=== PATIENT | female | born 1955 | race Caucasian/White ===

== ENCOUNTER 2016-08-20 18:04 | Inpatient (IN) | payer BC, OTHER ==
[~2016-08-20] VITALS: Ht 165.1 cm; Wt 100.9 kg
[~2016-08-20 18:04] MED LIST: SODIUM CHLORIDE 0.9% 1000ML 1,000 ML IV SCH
[2016-08-20] MEDS ORDERED: SODIUM CHLORIDE 0.9% 1000ML 1,000 ML IV STA (19:01)
[2016-08-20] MEDS ORDERED: LISI-725 PO (19:13)
[2016-08-20] MEDS ORDERED: PROAIR INH (19:13)
[2016-08-20] MEDS ORDERED: ADVIN25/60 INH (19:13)
[2016-08-20] MEDS ORDERED: FLUT0.15 NAE (19:13)
[2016-08-20] MEDS ORDERED: LEVO125T72 PO (19:13)
[2016-08-20] MEDS ORDERED: CYCL10TA6 PO (19:13)
[2016-08-20] MEDS ORDERED: DICL-201 PO (19:13)
[2016-08-20] MEDS ORDERED: METF-384 PO (19:13)
[2016-08-20] MEDS ORDERED: NVLRB SQ (19:13)
[2016-08-20] MEDS ORDERED: ASPI81TA28 PO (19:13)
[2016-08-20] MEDS ORDERED: INSDGI SC (19:13)
[2016-08-20] MEDS ORDERED: FEXO1TAB49 PO (19:38)
[2016-08-20] MEDS ORDERED: OMEG10007 (19:38)
[2016-08-20 19:55] LABS: BASO % 0.5 %; BASO ABS # 0.07 K/uL (0-0.2); COMPLETE YES; EOS % 0.7 %; HEMATOCRIT 38.9 % (37-47); IG% 0.3 %; LYMPH % 30.2 %; LYMPH ABS # 4.58 K/uL (1.2-3.4); MEAN CELL VOLUME 95.3 fL (80-100); MEAN CORPUSCULAR HEMOGLOBIN 33.3 pg (25-34); MEAN PLATELET VOLUME 10.5 fL (7.4-10.4); NEUT % 58.3 %; PLATELET COUNT 229 K/uL (130-400); RED BLOOD COUNT 4.08 M/uL (4.2-5.4); WHITE BLOOD COUNT 15.17 K/uL (4.8-10.8)
[2016-08-20 20:12] LABS: BUN/CREATININE RATIO 16.5 (10-20); C-REACTIVE PROTEIN 6.42 mg/dl (0-0.29); CALCIUM 9.6 mg/dl (8.5-10.1); CREATININE 0.77 mg/dl (0.60-1.20); POTASSIUM 3.7 mmol/L (3.5-5.1)
[2016-08-20] MEDS ORDERED: LIDOCAINE/EPINEPHRINE 1% 20 ML VIAL INFIL ONE (20:15)
[2016-08-20] MEDS ORDERED: VANCOMYCIN INJ 2,500 MG in SODIUM CHLORIDE 0.9% 500ML 500 ML IV STA (20:18)
[2016-08-20] MEDS ORDERED: CEFTRIAXONE SOD INJ 1 GM ADDVIAL IV STA (20:18)
[2016-08-20] MEDS ORDERED: DEXTROSE 50% 50 ML SYR IV PRN (22:15)
[2016-08-20] MEDS ORDERED: GLUCAGON FOR INJ 1 MG VIAL SQ PRN (22:15)
[2016-08-20] MEDS ORDERED: ONDANSETRON INJ 2 MG/ML 2 ML VIAL IV PRN (22:15)
[2016-08-20] MEDS ORDERED: GLUCOSE 10 TABS/TUBE PO PRN (22:15)
[2016-08-20] MEDS ORDERED: GLUCOSE 40% GEL 15 GM TUBE PO PRN (22:15)
[2016-08-20] MEDS ORDERED: PHARMACY GLYCEMIC MGMT CONSULT PRN (22:19)
[2016-08-20] MEDS ORDERED: ALBU18002 INH (22:22)
[2016-08-20] MEDS ORDERED: MULTTAB58 PO (22:22)
[2016-08-20] MEDS ORDERED: OMEG10007 PO (22:22)
[2016-08-20] MEDS ORDERED: ALBUTEROL HFA 8 GM INHALER INH PRN (22:30)
--- NOTE | 2016-08-20 22:57 | History and Physical ---
History & Physical Date & Time of Service: Aug 20, 2016 at 22:25 Chief Complaint: Infection On Right Leg - Vagina Primary Care Physician: Jn Nunes M.D. History of Present Illness Source: patient, clinic records This is a 60 y/o female with PMH of DM type 2, obesity, HTN, HL, hypothyroidism , and other problems listed below who presents to the ED for right labia and right upper thigh tenderness and swelling. Patient initially developed abscesses of right and left upper thigh in June 2016 and was treated with 2 courses of Bactrim as outpatient. Those lesions resolved then approx 1 week ago developed 2 areas of swelling and tenderness in right upper anterior thigh and right labia. She states there was purulent drainage from the right thigh lesion. Since yesterday has fevers with Tmax of 100.6 in [employer] [facility] office today. She was seen in [facility] for annual exam and sent to ER for abscess. In ER the right thigh lesion was drained and cultured. Pt reports discomfort if she sits on the lesions but is feeling comfortable now. Her blood sugar was low in 60s last night at home. She denies dizziness, chills, URI symptoms, cough, SOB, chest pain, abdominal pain, N/V/D, dysuria, frequency, vaginal discharge. No recent hospitalization. Past Medical/Surgical History Medical Problems: (1) DM type 2 (diabetes mellitus, type 2) Status: Chronic (2) Hypothyroidism Status: Chronic (3) Obesity (BMI 30-39.9) Status: Chronic (4) Obstructive lung disease Status: Chronic Surgical Problems: (1) H/O dilation and curettage Status: Chronic Family History Cardiac disorder MOTHER SISTER Diabetes mellitus MOTHER SISTER FH: emphysema FATHER Hypertension SISTER Social History Smoking Status: Never Smoker (quit in ) Alcohol Use: occasionally Drug Use: none Marital Status: Allergies Coded Allergies: Penicillins (Verified Allergy, Severe, RASH, JOINT PAIN, 08/20/16) Home Medications Scheduled Aspirin (Aspirin Ec), 162 MG PO HS Cyclobenzaprine Hcl (Flexeril), 10 MG PO TID Fexofenadine Hcl (Kaelyn Allergy), 1 TAB PO DAILY Fish Oil ([place]-3), 1 CAP PO DAILY Fluticasone Prop/Salmeterol (Advair Diskus 250/50 60 Dose), 1 PUFF INH BID Fluticasone Propionate (Nasal) (Flonase Allergy Relief), 2 SPRAYS JOSUE BID Insulin Glargine (Lantus), 50 UNITS SC QPM Insulin Human Regular (Novolin R), SQ TIDM Levothyroxine Sodium (Synthroid), 125 MCG PO DAILY Lisinopril (Zestril), 20 MG PO QPM Metformin Hcl (Glucophage), 1,000 MG PO BID Multiple Vitamin (Multivitamin), 1 TAB PO DAILY Scheduled PRN Albuterol Sulfate (Proair Respiclick), 2 PUFFS INH Q4 PRN for SOB/Wheezing Review of Systems Ten point ROS performed with pertinent positives and negatives noted in HPI. Physical Exam Vital Signs Date Time Temp Pulse Resp B/P Pulse Ox O2 Delivery O2 Flow Rate FiO2 08/20/16 20:30 91 17 135/88 93 Room Air 08/20/16 18:15 37.7 97 18 155/86 93 Room Air General Appearance: no apparent distress, + obese, + pertinent finding ( pleasant alert 60 y/o female) Head: normocephalic, atraumatic Eyes: normal inspection, PERRL, EOMI ENT: hearing grossly normal, pharynx normal Neck: supple, trachea midline Respiratory/Chest: lungs clear, normal breath sounds, no respiratory distress Cardiovascular: regular rate, rhythm, no murmur Abdomen/GI: normal bowel sounds, non tender, soft Extremities/Musculoskelatal: no calf tenderness, no pedal edema Neurologic/Psych: alert, normal mood/affect, oriented x 3 Skin: + pertinent finding (right labia with erythema, tenderness, induration. no fluctuance. right upper thigh with small area induration s/p incision/ drainage in ER with mild surrounding erythema. no active drainage.) Diagnostics Laboratory Results Results Past 24 Hours Test 08/20/16 13:45 08/20/16 19:44 08/20/16 22:21 Range/Units White Blood Count 15.17 4.8-10.8 K/uL Red Blood Count 4.08 4.2-5.4 M/uL Hemoglobin 13.6 12.0-16.0 g/dL Hematocrit 38.9 37-47 % Mean Corpuscular Volume 95.3 80-100 fL Mean Corpuscular Hemoglobin 33.3 25-34 pg Mean Corpuscular Hemoglobin Concent 35.0 32-36 g/dl Platelet Count 229 130-400 K/uL Mean Platelet Volume 10.5 7.4-10.4 fL Neutrophils (%) (Auto) 58.3 % Lymphocytes (%) (Auto) 30.2 % Monocytes (%) (Auto) 10.0 % Eosinophils (%) (Auto) 0.7 % Basophils (%) (Auto) 0.5 % Neutrophils # (Auto) 8.86 1.4-6.5 K/uL Lymphocytes # (Auto) 4.58 1.2-3.4 K/uL Monocytes # (Auto) 1.51 0.11-0.59 K/uL Eosinophils # (Auto) 0.10 0-0.5 K/uL Basophils # (Auto) 0.07 0-0.2 K/uL RDW Standard Deviation 45.5 36.4-46.3 fL RDW Coefficient of Variation 13.0 11.5-14.5 % Immature Granulocyte % (Auto) 0.3 % Immature Granulocyte # (Auto) 0.05 0.00-0.02 K/uL Sodium Level 138 136-145 mmol/L Potassium Level 3.7 3.5-5.1 mmol/L Chloride Level 105 98-107 mmol/L Carbon Dioxide Level 24 21-32 mmol/L Anion Gap 9.0 3-11 mmol/L Blood Urea Nitrogen 13 7-18 mg/dl Creatinine 0.77 0.60-1.20 mg/dl Est Creatinine Clear Calc Drug Dose 89.2 ml/min Estimated GFR () 95.9 Estimated GFR (Non- 82.8 BUN/Creatinine Ratio 16.5 10-20 Random Glucose 82 70-99 mg/dl Calcium Level 9.6 8.5-10.1 mg/dl C-Reactive Protein 6.42 0-0.29 mg/dl Bedside Lactic Acid Venous 0.87 0.90-1.70 mmol/L Microbiology Results 08/20/16 Blood Culture, Received Pending 08/20/16 Blood Culture, Received Pending 08/20/16 Gram Stain, Received Pending 08/20/16 Wound Culture, Received Pending Impression Assessment and Plan RIGHT LABIA/ RIGHT THIGH CELLULITIS In setting of DM type 2 Met criteria for sepsis with fever (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); HR in 90s, leukocytosis (WBC 15k); however lactic acid WNL and BP's are stable so sepsis considered less likely S/p drainage of right thigh abscess in ED Received vancomycin and ceftriaxone in ED Blood cultures and wound culture pending Continue empiric vancomycin and ceftriaxone HYPERTENSION BP 130s-150s in ER Continue lisinopril with parameter DM TYPE 2 Hold metformin during hospitalization Hold Lantus due to hypoglycemia episode at home 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 Flores HYPOTHYROIDISM Continue levothyroxine CODE STATUS Full code per my discussion with the patient. DVT PROPHYLAXIS Heparin SQ Patient seen in collaboration with Dr. Valencia. Please see his addendum. Attending Addendum Pt was seen and examined. Agreed with Martha SAMAYOA's physical exam, assessment and plan. 60 y/o female with PMH of DM type 2, obesity, HTN, HL, hypothyroidism presents to the ED for right labia and right upper thigh tenderness and swelling. Pt said that she has been having recurrent abscesses in the right and left thigh area and sometimes in her back. she said that today she went to see her [facility] for her annual exam when they told her to go to the ED for eval. Pt said that she had a fever yesterday. Denies any chest pain, palpitation, dizziness and sob. General- no acute distress Head- atraumatic Eyes- PERRL, EOMI ENT- oropharynx clear Neck- supple, no JVD Lungs- clear to auscultation and percussion Heart- regular rhythm; no murmur Abdomen- normal bowel sounds, soft Extremities- no calf tenderness Neuro- alert, oriented x 3; PERRL, EOMI Skin- warm & dry, Right thigh redness with small area induration [employer]- Right labial area tenderness and redness A/P RIGHT LABIAL/ RIGHT THIGH CELLULITIS S/p drainage of right thigh abscess in ED febrile with elevated WBC Received vancomycin and ceftriaxone in ED Blood cultures and wound culture pending Vital stable Continue Abx continue monitor Please refer to Martha SAMAYOA's documentation for other problems Rosalia Valencia MD VTE Prophylaxis VTE Risk Assessment Done? Y/N: Yes Risk Level: Moderate
[2016-08-20] MEDS ORDERED: VANCOMYCIN CONSULT ACTIVE PRN (23:16)
--- NOTE | 2016-08-20 23:57 | EMERGENCY ROOM VISIT NOTE ---
History Report prepared by Iker: Jina Vaz Under the Supervision of: Dr. Wally Eastman M.D. First contact with patient: 18:47 Chief Complaint: WOUND INFECTION Stated Complaint: INFECTION ON RIGHT LEG - VAGINA Nursing Triage Summary: pt sent here by gyne has lesion on vulvar. has been taking bactrim finished 2 weeks ago. lesion come in different places sent for iv antibiotics History of Present Illness The patient is a 60 year old female who presents to the Emergency Room with complaints of persistent "zits" on in the vaginal area which presented DIE TURNER. She was sent to the ED from [facility] after they found the cysts or "zits" localized in the labia area which might be infected. She denies any redness down the leg or up to her abdomen. She has had a fever last night and today which was 100.6 when measured DIE TURNER. She is diabetic and reports that her blood sugar levels have been good, excepting a couple spikes on occasion. Her sugar was normal this morning. She was on Bactrim for 2 weeks which has not cleared her infection. Source of History: patient Onset: DIE TURNER Position: other (vaginal area) Quality: other ("zits") Timing: other (persistent) Associated Symptoms: + fevers Note: Pt denies redness on legs or abdomen. Review of Systems See HPI for pertinent positives & negatives. A total of 10 systems reviewed and were otherwise negative. Past Medical & Surgical Medical Problems: (1) Diabetes (2) DM type 2 (diabetes mellitus, type 2) (3) Hypothyroidism (4) Labial infection (5) Obesity (BMI 30-39.9) (6) Obstructive lung disease Surgical Problems: (1) H/O dilation and curettage Family History Patient reports no known family medical history. Social History Smoking Status: Never Smoker Marital Status: Housing Status: lives with family Occupation Status: employed Current/Historical Medications Scheduled Aspirin (Aspirin Ec), 162 MG PO HS Cyclobenzaprine Hcl (Flexeril), 10 MG PO TID Fexofenadine Hcl (Kaelyn Allergy), 1 TAB PO DAILY Fish Oil ([place]-3), 1 CAP PO DAILY Fluticasone Prop/Salmeterol (Advair Diskus 250/50 60 Dose), 1 PUFF INH BID Fluticasone Propionate (Nasal) (Flonase Allergy Relief), 2 SPRAYS JOSUE BID Insulin Glargine (Lantus), 50 UNITS SC QPM Insulin Human Regular (Novolin R), SQ TIDM Levothyroxine Sodium (Synthroid), 125 MCG PO DAILY Lisinopril (Zestril), 20 MG PO QPM Metformin Hcl (Glucophage), 1,000 MG PO BID Multiple Vitamin (Multivitamin), 1 TAB PO DAILY Scheduled PRN Albuterol Sulfate (Proair Respiclick), 2 PUFFS INH Q4 PRN for SOB/Wheezing Allergies Coded Allergies: Penicillins (Verified Allergy, Severe, RASH, JOINT PAIN, 08/20/16) Physical Exam Vital Signs Date Time Temp Pulse Resp B/P Pulse Ox O2 Delivery O2 Flow Rate FiO2 08/20/16 23:00 82 20 137/82 96 Room Air 08/20/16 20:30 91 17 135/88 93 Room Air 08/20/16 18:15 37.7 97 18 155/86 93 Room Air Physical Exam GENERAL: Patient is well appearing and in mild distress. HEENT: No acute trauma, normocephalic atraumatic, mucous membranes moist, no nasal congestion, no scleral icterus. NECK: No stridor, no adenopathy, no meningismus, trachea is midline. LUNGS: No dyspnea. Clear to auscultation and equal bilaterally. No wheeze, no rhonchi. HEART: Regular rate and rhythm. No murmurs, rubs, gallops appreciated. ABDOMEN: Soft, nontender, bowel sounds positive, no masses appreciated, no peritonitis. BACK: No midline tenderness, no CVA tenderness : EXTREMITIES: Normal motion all extremities, no cyanosis, no edema. NEUROLOGIC: Alert and oriented, no acute motor or sensory deficits, no focal weakness, cranial nerves grossly intact. SKIN: No rash, no jaundice, no diaphoresis. Medical Decision & Procedures Laboratory Results 08/20/16 13:45 Red Blood Count 4.08, Mean Corpuscular Volume 95.3, Mean Corpuscular Hemoglobin 33.3, Mean Corpuscular Hemoglobin Concent 35.0, Mean Platelet Volume 10.5, Neutrophils (%) (Auto) 58.3, Lymphocytes (%) (Auto) 30.2, Monocytes (%) (Auto) 10.0, Eosinophils (%) (Auto) 0.7, Basophils (%) (Auto) 0.5, Neutrophils # (Auto ) 8.86, Lymphocytes # (Auto) 4.58, Monocytes # (Auto) 1.51, Eosinophils # (Auto ) 0.10, Basophils # (Auto) 0.07 08/20/16 13:45 Test 08/20/16 13:45 08/20/16 19:44 08/20/16 19:45 White Blood Count 15.17 K/uL (4.8-10.8) Red Blood Count 4.08 M/uL (4.2-5.4) Hemoglobin 13.6 g/dL (12.0-16.0) Hematocrit 38.9 % (37-47) Mean Corpuscular Volume 95.3 fL (80-100) Mean Corpuscular Hemoglobin 33.3 pg (25-34) Mean Corpuscular Hemoglobin Concent 35.0 g/dl (32-36) Platelet Count 229 K/uL (130-400) Mean Platelet Volume 10.5 fL (7.4-10.4) Neutrophils (%) (Auto) 58.3 % Lymphocytes (%) (Auto) 30.2 % Monocytes (%) (Auto) 10.0 % Eosinophils (%) (Auto) 0.7 % Basophils (%) (Auto) 0.5 % Neutrophils # (Auto) 8.86 K/uL (1.4-6.5) Lymphocytes # (Auto) 4.58 K/uL (1.2-3.4) Monocytes # (Auto) 1.51 K/uL (0.11-0.59) Eosinophils # (Auto) 0.10 K/uL (0-0.5) Basophils # (Auto) 0.07 K/uL (0-0.2) RDW Standard Deviation 45.5 fL (36.4-46.3) RDW Coefficient of Variation 13.0 % (11.5-14.5) Immature Granulocyte % (Auto) 0.3 % Immature Granulocyte # (Auto) 0.05 K/uL (0.00-0.02) Anion Gap 9.0 mmol/L (3-11) Est Creatinine Clear Calc Drug Dose 89.2 ml/min Estimated GFR () 95.9 Estimated GFR (Non- 82.8 BUN/Creatinine Ratio 16.5 (10-20) Calcium Level 9.6 mg/dl (8.5-10.1) C-Reactive Protein 6.42 mg/dl (0-0.29) Bedside Lactic Acid Venous 0.87 mmol/L (0.90-1.70) Prothrombin Time 11.0 SECONDS (9.0-12.0) Prothromb Time International Ratio 1.0 (0.9-1.1) Laboratory results as reviewed by me. Medications Administered Medications (Trade) Dose Ordered Sig/Fallon Route Start Time Stop Time Status Last Admin Dose Admin Sodium Chloride 1,000 ml @ 75 mls/hr [id number] STAT IV 08/20/16 19:01 08/21/16 08:20 08/20/16 19:01 75 MLS/HR Vancomycin HCl/ Sodium Chloride (Vancomycin Inj/ Nss 500ml) 550 ml @ 200 mls/hr ONE STAT IV 08/20/16 20:18 08/20/16 23:02 DC 08/20/16 21:17 200 MLS/HR Ceftriaxone Sodium (Rocephin Inj) 1 gm NOW STAT IV 08/20/16 20:18 08/20/16 20:20 DC 08/20/16 20:35 1 GM ED Course 1857: The patient was evaluated in room B5. A complete history and physical exam was performed. 1900: NSS 1000 ml @ 75 mls/hr IV. 2014: Lidocaine/Epinephrine 20 ml INFIL. 2018: Rocephin Inj 1 gm IV, Vancomycin HCl 2500 mg/Sodium Chloride 550 ml @ 200 mls/hr IV. 2053: I discussed the patient's case with Dr. Garrett, [facility] - hospitalist. The patient will be evaluated for further treatment and disposition. 2058: Upon reevaluation, the patient is resting comfortably. I discussed results and treatment plan with the patient. she verbalized understanding and agreement with the treatment plan. The patient will be evaluated for further management. Medical Decision 60 yr old pleasant female with history of DMII and frequent contact with hospital[facility] through work and taking care of ill sister. She has been on bactrim for 2 weeks for labial infection with worsening infection. Now with fevers at clinic, chills and not feeling well. Extensive cellulitis with likely underlying abscess right labia. Right thigh abscess drained and cultured by me. Blood cultures obtained. Not hypotensive and no lactic acidosis. She was given gentle fluids, empiric broad abx, and will need to come in for early sepsis and air marshal evaluation. Will defer further imaging to managing team/air marshal. Consults Time Called: 2048 Consulting Physician: Tio Deleon - hospitalist Returned Call: [phone] Discussed the patient's case. The patient will be evaluated for further treatment and disposition. Impression Primary Impression: Sepsis Additional Impressions: Labial infection Abscess of right thigh Scribe Attestation The scribe's documentation has been prepared under my direction and personally reviewed by me in its entirety. I confirm that the note above accurately reflects all work, treatment, procedures, and medical decision making performed by me. Departure Information Dispostion Being Evaluated By Hospitalist Referrals Sherri Mcclure (PCP) Patient Instructions My [facility] Problem Qualifiers Primary Impression: Sepsis Sepsis type: sepsis due to unspecified organism Qualified Codes: A41.9 - Sepsis, unspecified organism
[2016-08-21 00:05] VITALS: BMI 37.0
[2016-08-21 00:41] VITALS: BP 137/76; PULSE 89; TEMP 36.9; O2SAT 91
[2016-08-21] MEDS: ACETAMINOPHEN 325 MG TAB PO PRN ×3 (00:45→19:21)
[2016-08-21] MEDS: SODIUM CHLORIDE 0.9% 1000ML 1,000 ML IV SCH ×2 (02:37→14:05)
[2016-08-21] MEDS: LEVOTHYROXINE 125 MCG TAB PO SCH (05:50)
[2016-08-21] MEDS: HEPARIN SOD 5000 UNIT/0.5 ML CARP SQ SCH ×3 (05:52→21:49)
[2016-08-21 06:57] VITALS: BP 112/74; PULSE 73; TEMP 36.5; O2SAT 93
[2016-08-21 07:07] LABS: HEMATOCRIT 35.9 % (37-47); MEAN CELL VOLUME 94.7 fL (80-100); MEAN CORPUSCULAR HEMOGLOBIN 31.9 pg (25-34); MEAN CORPUSCULAR HGB CONC 33.7 g/dl (32-36); MEAN PLATELET VOLUME 10.1 fL (7.4-10.4); PLATELET COUNT 203 K/uL (130-400); RED BLOOD COUNT 3.79 M/uL (4.2-5.4); WHITE BLOOD COUNT 11.24 K/uL (4.8-10.8)
[2016-08-21 07:26] LABS: ESTIMATED AVERAGE GLUCOSE 177 mg/dl; HA1C FLAG Normal (Normal)
[2016-08-21 08:10] VITALS: O2SAT 93
[2016-08-21] MEDS: FLUTICASONE PROPIONATE NA SPR 16 GM BTL NAE SCH ×2 (09:52→21:12)
[2016-08-21] MEDS: FLUTICASONE/SALMETEROL 250/50 (ADVAIR) 14 PUFF/1 INHALER INH SCH ×2 (09:52→21:13)
[2016-08-21] MEDS: OMEGA-3 (PURIFIED FISH OIL) 1 GM CAP PO SCH (09:52)
[2016-08-21] MEDS: CYCLOBENZAPRINE HCL 10 MG TAB PO SCH ×3 (09:53→21:14)
[2016-08-21] MEDS: FEXOFENADINE HCL 180 MG TAB PO SCH (09:53)
[2016-08-21] MEDS: MULTIVITAMIN TAB PO SCH (09:53)
--- NOTE | 2016-08-21 09:53 | Pharmacy Progress Note ---
Pharmacy Antibiotic Consult Date of Service: Aug 21, 2016. Pharmacy Dosing Scope Pharmacy is consulted to initiate vancomycin IV dosing therapy, order appropriate labs and adjust drug dose/frequency. Subjective The patient is a 60 year old female admitted on Aug 20, 2016 at 22:31 for R labia/R thigh cellulitis. Recent treatment of 2 courses of Bactrim as an outpatient since June 2016. Objective Height (Feet): 5 Height (Inches): 5.00 Weight (Kilograms): 100.900 Lab Results (24hrs): Laboratory Tests Test 08/20/16 13:45 08/21/16 06:29 BUN/Creatinine Ratio 16.5 Blood Urea Nitrogen 13 mg/dl Creatinine 0.77 mg/dl White Blood Count 15.17 K/uL 11.24 K/uL Red Blood Count 4.08 M/uL Hemoglobin 13.6 g/dL Hematocrit 38.9 % Mean Corpuscular Volume 95.3 fL Mean Corpuscular Hemoglobin 33.3 pg Mean Corpuscular Hemoglobin Concent 35.0 g/dl Platelet Count 229 K/uL Mean Platelet Volume 10.5 fL Neutrophils (%) (Auto) 58.3 % Lymphocytes (%) (Auto) 30.2 % Monocytes (%) (Auto) 10.0 % Eosinophils (%) (Auto) 0.7 % Basophils (%) (Auto) 0.5 % Neutrophils # (Auto) 8.86 K/uL Lymphocytes # (Auto) 4.58 K/uL Monocytes # (Auto) 1.51 K/uL Eosinophils # (Auto) 0.10 K/uL Basophils # (Auto) 0.07 K/uL Micro Results: Item Value Date Time Gram Stain - Final Resulted 08/20/162049 Abscess Thigh , Right Blood Culture Received 08/20/161934 Blood Pending Blood Culture Received 08/20/161929 Blood Pending Recent Pertinent Medications Item Value Date Time Vancomycin HCl 550 ml @ 200 mls/hr 08/20/162017 2500 mg/Sodium ONE STAT/IV 08/20/162116 Chloride Ceftriaxone Sodium 1 gm 08/20/162017 (Rocephin Inj) NOW STAT/IV 08/20/162034 Ceftriaxone 50 ml @ 100 mls/hr 08/21/161999 Sodium 1 gm/ Q24H/IV Dextrose Assessment & Plan ASSESSMENT: * 60 y/o female with R labia/R thigh abscess, currently on day #2 of vancomycin and Rocephin * Est PK parameters: Vd ~0.6 L/kg, Simon ~ 0.078 hr-1, t1/2 ~ 9 hrs * Her BMI is above 35, so she is at risk to accumulate vancomycin over time PLAN: * Vancomycin 2500 mg loading dose was given last night in the ED and a maintenance dose of 1300 mg (~13 mg/kg) IV q12h has been ordered by the overnight pharmacist * I am in agreement with this dose and will plan to continue, with trough level to be assessed prior to the 4th overall dose Pharmacy will continue to follow and will adjust dose/frequency as necessary. Thank you
[2016-08-21] MEDS: VANCOMYCIN INJ 1,300 MG in SODIUM CHLORIDE 0.9% 250ML 250 ML IV SCH ×2 (09:56→21:13)
[2016-08-21] MEDS: INSULIN ASPART 100 UNITS/ML 3 ML PEN SC SCH ×4 (10:04→21:48)
[2016-08-21 11:32] VITALS: Ht 165.1 cm; Wt 100.9 kg
[2016-08-21 15:14] VITALS: BP 115/74; PULSE 84; TEMP 36.7; O2SAT 95
--- NOTE | 2016-08-21 15:22 | Pharmacy Progress Note ---
Glycemic Control Intl Consult Date of Service Aug 21, 2016. Scope Glycemic Pharmacist consulted by GEOVANNA Blankenship on 08/21/16 for glycemic control and to write orders per [facility] inpatient glycemic control protocol Objective Weight (Kilograms): 100.900 Accuchecks BSG (last 24hrs): Test 08/21/16 08:17 08/21/16 12:14 Bedside Glucose 127 mg/dl (70-90) 165 mg/dl (70-90) Laboratory Data (last 24hrs) Test 08/21/16 06:29 Hemoglobin A1c 7.8 % White Blood Count 11.24 K/uL HbA1c Test 08/21/16 06:29 Hemoglobin A1c 7.8 % (4.5-5.6) H Recent Pertinent Medications Outpatient Anti-diabetic Regimen: * Lantus 50 units qpm, regular insulin with each meal, metformin 1 Gm bid * A1c = 7.8 % 08/21/16 The patient is currently receiving: * Basal insulin: none * Correctional Insulin: Novolog Correction per scale ACHS Goal Range: Low 110 mg/dL - High 150 mg/dL Correction Factor: 30 mg/dL/unit * Prandial insulin: Per carb ratio of 1 unit per 10 grams CHO consumed * Oral Agents: none Risk Factors for Insulin Resistance: * Steroids: no * Infection: labial abscess, on vancomycin and ceftriaxone * Pressors: no * IVF: NS @ 80 ml/hr, ceftriaxone mixed in D5W * Recent Surgery: no * Diet: type 2 diabetic AHA, fairly good appetite * Mechanical Ventilation: no Assessment & Plan ASSESSMENT: * ADA & AACE recommend a goal blood sugar range 140-180 mg/dl for the majority of critically ill & non-critically ill patients. However, more stringent targets may be selected in individual cases. * 60 yo type 2 diabetic fairly well controlled past 3 months, though patient reports low BSG's at home. Started conservative weight-based Novolog correction and carb ratio. Lantus held yesterday due to low BSG. Will restart about 20% less with dosing parameters. Will reassess in am. PLAN FOR INPATIENT GLYCEMIC CONTROL: * Holding outpatient oral diabetes medications * Basal insulin with LANTUS 20 units SQ BID, give 1/2 dose if BSG is less than 150 * Correctional Insulin with NOVOLOG per scale ACHS or Q6hrs while NPO * Goal Range: Low 110 mg/dL - High 150 mg/dL * Correction Factor: 30 mg/dL/unit * Nutritional / Prandial insulin per carb ratio of 1 unit per 10 grams CHO consumed * Please note that the plan above was derived based on current level of insulin resistance and hospital stress. These recommendations are appropriate for inpatient admission only. Plan of care upon discharge will need to be reassessed to avoid potential outpatient hypo/hyperglycemia. Thank you.
--- NOTE | 2016-08-21 19:57 | Progress Note ---
Internal Med Progress Note Date of Service: Aug 21, 2016. Provider Documentation: SUBJECTIVE: no fever or chills still has persisted pain and swelling on inner thigh and rt labial area OBJECTIVE: Vital Signs-as noted below Exam: General-no sign of distress Eyes-non icteric sclera ENT-NAD Neck-no JVD Lungs-CTA Heart-regular S1/S2 Abdomen-soft, non tender Extremities-red /erythematous rt labia and mons pubis , drainage of pus /small scabbed lesion on rt inner thigh Neuro-no focal deficit Lab data as noted below. 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); HR in 90s, leukocytosis (WBC 15k); however lactic acid WNL and BP's are stable so sepsis considered less likely S/p drainage of right thigh abscess in ED WOUND culture staph aureus cont IV Vancomycin ID consulted surgery consult requested to further assessment and possible drainage of abscess HYPERTENSION BP stable Continue lisinopril with parameter DM TYPE 2 Hold metformin during hospitalization Hold Lantus due to hypoglycemia episode at home ESTIMATOR JEWELRY Insulin sliding scale coverage Consulted pharmacy for glycemic control OBSTRUCTIVE LUNG DISEASE Not in exacerbation Continue Advair and PRN albuterol Follows with Dr. Flores HYPOTHYROIDISM Continue levothyroxine CODE STATUS Full code DVT PROPHYLAXIS Heparin SQ DISPOSITION Discharge home when medically stable Medicine follow up with Dr Gallardo Vital Signs: Date Time Temp Pulse Resp B/P Pulse Ox O2 Delivery O2 Flow Rate FiO2 08/22/16 15:38 36.6 76 18 125/73 94 Room Air 08/22/16 15:30 Room Air 08/22/16 10:15 93 Room Air 08/22/16 08:10 93 Room Air 08/22/16 08:10 Room Air 08/22/16 07:46 36.7 80 20 160/85 93 Room Air 08/21/16 23:49 36.7 78 18 117/76 96 Room Air 08/21/16 23:30 Room Air Lab Results: Results Past 24 Hours Test 08/22/16 05:37 08/22/16 06:50 08/22/16 08:43 08/22/16 11:27 Range/Units Bedside Glucose 118 181 70-90 mg/dl White Blood Count 10.70 4.8-10.8 K/uL Red Blood Count 3.82 4.2-5.4 M/uL Hemoglobin 12.4 12.0-16.0 g/dL Hematocrit 36.8 37-47 % Mean Corpuscular Volume 96.3 80-100 fL Mean Corpuscular Hemoglobin 32.5 25-34 pg Mean Corpuscular Hemoglobin Concent 33.7 32-36 g/dl RDW Standard Deviation 46.1 36.4-46.3 fL RDW Coefficient of Variation 13.2 11.5-14.5 % Platelet Count 203 130-400 K/uL Mean Platelet Volume 10.0 7.4-10.4 fL Sodium Level 142 136-145 mmol/L Potassium Level 3.7 3.5-5.1 mmol/L Chloride Level 111 98-107 mmol/L Carbon Dioxide Level 25 21-32 mmol/L Anion Gap 6.0 3-11 mmol/L Blood Urea Nitrogen 11 7-18 mg/dl Creatinine 0.71 0.60-1.20 mg/dl Est Creatinine Clear Calc Drug Dose 96.7 ml/min Estimated GFR () 105.8 Estimated GFR (Non- 91.3 BUN/Creatinine Ratio 15.2 10-20 Random Glucose 125 70-99 mg/dl Calcium Level 8.8 8.5-10.1 mg/dl Vancomycin Level Trough 11.1 SEE COMMENT mcg/ml Test 08/22/16 16:48 08/22/16 20:18 Range/Units Bedside Glucose 122 156 70-90 mg/dl Microbiology Results 08/21/16 MRSA DNA Surveillance Screen - Final, Complete Specimen Negative for MRSA by DNA Probe
[2016-08-21] MEDS ORDERED: CEFTRIAXONE SOD INJ 1 GM in DEXTROSE 5% ADD-VANTAGE 50ML 50 ML IV SCH (20:00)
[2016-08-21] MEDS: ASPIRIN 81 MG ECTAB PO SCH (21:13)
[2016-08-21] MEDS: LISINOPRIL 20 MG TAB PO SCH (21:14)
[2016-08-21] MEDS ORDERED: LIDOCAINE HCL 1% 20 ML VIAL ONE (21:27)
[2016-08-21] MEDS ORDERED: NURSING VERBAL MED ORDER ONE (21:45)
[2016-08-21] MEDS: INSULIN GLARGINE SOLOSTAR 100 UNITS/ML 3 ML PEN SC SCH (21:48)
--- NOTE | 2016-08-21 21:58 | Medical Consult ---
Consultation Date of Consultation: Aug 21, 2016. Attending Physician: Adriana Flores M.D. History of Present Illness admitted with Rt labial abscess- drainage in ER cultured- + staph on Vanco Past Medical/Surgical History Medical Problems: (1) Abscess of right thigh Status: Acute (2) Sepsis Status: Acute Family History Cardiac disorder MOTHER SISTER Diabetes mellitus MOTHER SISTER FH: emphysema FATHER Hypertension SISTER Social History Smoking Status: Never Smoker Alcohol Use: occasionally Drug Use: none Marital Status: Housing Status: lives with family Occupation Status: employed Allergies Coded Allergies: Penicillins (Verified Allergy, Severe, RASH, JOINT PAIN, 08/20/16) Current Inpatient Medications Current Inpatient Medications Medications (Trade) Dose Ordered Sig/[place] Route Start Time Stop Time Status Last Admin Dose Admin Heparin Sodium (Porcine) (Heparin Sq 5000 Unit/0.5ml) 5,000 unit Q8H SQ 08/21/16 06:00 09/20/16 05:59 08/21/16 21:49 5,000 UNIT Acetaminophen (Tylenol Tab) 650 mg Q4H PRN PO 08/20/16 22:15 09/19/16 22:14 08/21/16 19:21 650 MG Ondansetron HCl (Zofran Inj) 4 mg Q6H PRN IV 08/20/16 22:15 09/19/16 22:14 Insulin Aspart (novoLOG ASPART) SLIDING SCALE If C... ACHS SC 08/21/16 07:00 09/20/16 06:59 08/21/16 21:48 1 UNITS Glucose (Glucose 40% Gel) 15-30 GRAMS 15 GRAMS... UD PRN PO 08/20/16 22:15 09/19/16 22:14 Glucose (Glucose Chew Tab) 4-8 Tablets 4 Tabl... UD PRN PO 08/20/16 22:15 09/19/16 22:14 Dextrose (Dextrose 50% 50ML Syringe) 25-50ML OF 50% DW IV FOR... UD PRN IV 08/20/16 22:15 09/19/16 22:14 Glucagon (Glucagon Inj) 1 mg UD PRN SQ 08/20/16 22:15 09/19/16 22:14 Miscellaneous Information (Consult Glycemic Management Pharmacy) 1 ea UD PRN N/A 08/20/16 22:19 09/19/16 22:18 Aspirin (Ecotrin Tab) 162 mg HS PO 08/21/16 21:00 09/20/16 20:59 08/21/16 21:13 162 MG Cyclobenzaprine HCl (Flexeril Tab) 10 mg TID PO 08/21/16 09:00 09/20/16 08:59 08/21/16 21:14 10 MG Fexofenadine HCl (Kaelyn Tab) 180 mg DAILY PO 08/21/16 09:00 09/20/16 08:59 08/21/16 09:53 180 MG Fish Oil ([place]-3 (Purified Fish Oil) Cap) 1 gm DAILY PO 08/21/16 09:00 09/20/16 08:59 08/21/16 09:52 1 GM Salmeterol Xinafoate/ Fluticasone (Advair Diskus 250/50 Inh) 1 puff BID INH 08/21/16 09:00 09/20/16 08:59 08/21/16 21:13 1 PUFF Fluticasone Propionate (Flonase Nasal [place]) 2 sprays BID JOSUE 08/21/16 09:00 09/20/16 08:59 08/21/16 21:12 2 SPRAYS Levothyroxine Sodium (Synthroid Tab) 125 mcg DAILYBB PO 08/21/16 06:00 09/20/16 06:59 08/21/16 05:50 125 MCG Lisinopril (Zestril Tab) 20 mg QPM PO 08/21/16 21:00 09/20/16 20:59 08/21/16 21:14 20 MG Multivitamins (Multivitamin Tab) 1 tab DAILY PO 08/21/16 09:00 09/20/16 08:59 08/21/16 09:53 1 TAB Albuterol (Ventolin Hfa Inhaler) 2 puffs Q4 PRN INH 08/20/16 22:30 09/19/16 22:29 Vancomycin HCl 1 ea 1 ea DAILY PRN N/A 08/20/16 23:16 09/19/16 23:15 Vancomycin HCl 1300 mg/Sodium Chloride 276 ml @ 125 mls/hr Q12H IV 08/21/16 09:00 08/31/16 08:59 08/21/16 21:13 125 MLS/HR Sodium Chloride (Nss 1000ml) 1,000 ml @ 80 mls/hr [id number] IV 08/21/16 02:00 09/20/16 01:59 08/21/16 14:05 80 MLS/HR Insulin Glargine (Lantus Solostar Pen) SEE PROTOCOL BID SC 08/21/16 21:00 09/20/16 20:59 08/21/16 21:48 20 UNIT Lidocaine HCl (Xylocaine 1% Inj (Local)) 20 ml 2200 INFIL 08/21/16 22:00 08/21/16 23:00 Acetaminophen/ Hydrocodone Bitart ([place] 5/325 Tab) 1 tab Q4 PRN PO 08/21/16 22:00 09/04/16 21:59 UNV Acetaminophen/ Hydrocodone Bitart ([place] 5/325 Tab) 2 tab Q4 PRN PO 08/21/16 22:00 09/04/16 21:59 UNV Morphine Sulfate (MoRPHine SULFATE INJ) 2 mg Q4H PRN IV 08/21/16 22:00 09/04/16 21:59 UNV Morphine Sulfate (MoRPHine SULFATE INJ) 4 mg Q4H PRN IV 08/21/16 22:00 09/04/16 21:59 UNV Review of Systems Constitutional: No chills Respiratory: No cough, No shortness of breath Cardiovascular: No chest pain Abdomen: No pain Genitourinary - Female: No dysuria Neurologic: No weakness Endocrine: No fatigue Integumentary: No rash Physical Exam Date Time Temp Pulse Resp B/P Pulse Ox O2 Delivery O2 Flow Rate FiO2 08/21/16 19:20 Room Air 08/21/16 15:14 36.7 84 18 115/74 95 Room Air 08/21/16 08:10 93 Room Air 08/21/16 06:57 36.5 73 16 112/74 93 Room Air 08/21/16 00:41 36.9 89 18 137/76 91 Room Air 08/21/16 00:05 Room Air 08/21/16 00:05 Room Air 08/20/16 23:54 77 20 127/75 93 08/20/16 23:00 82 20 137/82 96 Room Air General Appearance: no apparent distress Eyes: normal inspection Neck: supple Cardiovascular: regular rate, rhythm Abdomen/GI: soft Genitourinary - Female: + pertinent finding (Rt labia- indurated, inflammed, small opening from I/D) Neurologic/Psych: alert Skin: no rash Laboratory Results Last 24 Hours Test 08/21/16 06:29 08/21/16 08:17 08/21/16 12:14 08/21/16 16:54 White Blood Count 11.24 K/uL Red Blood Count 3.79 M/uL Hemoglobin 12.1 g/dL Hematocrit 35.9 % Mean Corpuscular Volume 94.7 fL Mean Corpuscular Hemoglobin 31.9 pg Mean Corpuscular Hemoglobin Concent 33.7 g/dl RDW Standard Deviation 46.2 fL RDW Coefficient of Variation 13.2 % Platelet Count 203 K/uL Mean Platelet Volume 10.1 fL Estimated Average Glucose 177 mg/dl Hemoglobin A1c 7.8 % Bedside Glucose 127 mg/dl 165 mg/dl 150 mg/dl Test 08/21/16 20:47 Bedside Glucose 168 mg/dl Assessment & Plan 08/21/16- Rt labial cellulitis, abscess- area opened (I/D)- has cavity, relatively small minimal purulence- already drained in ER- packing applied- replace with saline wet nugauze and peripad, cont Vanco CT in am - may be MRSA with microabscesses will need 5-7 days IV and possibly longer- ID consult in am
[2016-08-21] MEDS ORDERED: HYDROCODONE/ACETAMOPHEN 5/325MG TAB PO PRN (22:00)
[2016-08-21] MEDS ORDERED: LIDOCAINE HCL 1% 20 ML VIAL INFIL SCH (22:00)
--- NOTE | 2016-08-21 22:13 | OPERATIVE REPORT ---
DATE OF OPERATION: 08/21/2016 NAME OF PROCEDURE: Incision and drainage of right labial abscess. PREOPERATIVE DIAGNOSIS: Right labial abscess. POSTOPERATIVE DIAGNOSIS: Same. STAFF SURGEON: Dr. Avila. ANESTHESIA: 1% plain lidocaine. PROCEDURE: The patient was in her bed. She was placed in the left lateral decubitus position. Her right labia was approached and anesthetized using 1% plain lidocaine. A 2-3 cm incision was made encountering a very small amount of purulent material, but she did have what appeared to be somewhat of a necrotic cavity. This was packed with gauze and then a dressing applied. The patient had already undergone culture. She tolerated the procedure well. I attest to the content of the Intraoperative Record and any orders documented therein. Any exceptio ns are noted below.
[2016-08-21] MEDS: MoRPHine SULFATE 2 MG/ML CARP IV PRN (23:22)
[2016-08-21 23:49] VITALS: BP 117/76; PULSE 78; TEMP 36.7; O2SAT 96
[2016-08-22] MEDS: SODIUM CHLORIDE 0.9% 1000ML 1,000 ML IV SCH ×2 (03:16→15:36)
[2016-08-22] MEDS: MoRPHine SULFATE 2 MG/ML CARP IV PRN (03:35)
[2016-08-22] MEDS ORDERED: NURSING VERBAL MED ORDER ONE (04:00)
[2016-08-22] MEDS: LEVOTHYROXINE 125 MCG TAB PO SCH (05:48)
[2016-08-22] MEDS: HEPARIN SOD 5000 UNIT/0.5 ML CARP SQ SCH ×3 (05:48→21:53)
[2016-08-22] MEDS ORDERED: INSULIN ASPART 100 UNITS/ML 3 ML PEN SC SCH (06:00)
--- NOTE | 2016-08-22 06:33 | Surgery Progress Note ---
Surgery Progress Note Date of Service Aug 22, 2016. Subjective feels ok, very pleasant Objective Vital Signs: Date Time Temp Pulse Resp B/P Pulse Ox O2 Delivery O2 Flow Rate FiO2 08/21/16 23:49 36.7 78 18 117/76 96 Room Air 08/21/16 23:30 Room Air 08/21/16 19:20 Room Air 08/21/16 15:14 36.7 84 18 115/74 95 Room Air 08/21/16 08:10 93 Room Air 08/21/16 06:57 36.5 73 16 112/74 93 Room Air General Appearance: no apparent distress Respiratory/Chest: no respiratory distress Incision(s): findings (Rt labia with cellulitis but less induration since I/D) Extremities: + pertinent finding (thigh erythema improved) Laboratory Results: Results Past 24 Hours Test 08/21/16 06:29 08/21/16 08:17 08/21/16 12:14 08/21/16 16:54 Range/Units White Blood Count 11.24 4.8-10.8 K/uL Red Blood Count 3.79 4.2-5.4 M/uL Hemoglobin 12.1 12.0-16.0 g/dL Hematocrit 35.9 37-47 % Mean Corpuscular Volume 94.7 80-100 fL Mean Corpuscular Hemoglobin 31.9 25-34 pg Mean Corpuscular Hemoglobin Concent 33.7 32-36 g/dl RDW Standard Deviation 46.2 36.4-46.3 fL RDW Coefficient of Variation 13.2 11.5-14.5 % Platelet Count 203 130-400 K/uL Mean Platelet Volume 10.1 7.4-10.4 fL Estimated Average Glucose 177 mg/dl Hemoglobin A1c 7.8 4.5-5.6 % Bedside Glucose 127 165 150 70-90 mg/dl Test 08/21/16 20:47 08/22/16 04:44 08/22/16 05:37 Range/Units Bedside Glucose 168 118 70-90 mg/dl Microbiology Results 08/21/16 MRSA DNA Surveillance Screen - Final, Complete Specimen Negative for MRSA by DNA Probe Assessment & Plan 08/22/16- adm with soft tissue cellulitis Rt labia and thigh- staph growing sensativity pending. pelvic CT pending. Seems to be improved on Vanco- may not require further surgery. Dr Gordon covering over weekend
[2016-08-22] MEDS ORDERED: OPTIRAY 320 IV PRN (06:45)
[2016-08-22 06:59] LABS: HEMATOCRIT 36.8 % (37-47); MEAN CELL VOLUME 96.3 fL (80-100); MEAN CORPUSCULAR HEMOGLOBIN 32.5 pg (25-34); MEAN CORPUSCULAR HGB CONC 33.7 g/dl (32-36); PLATELET COUNT 203 K/uL (130-400); RED BLOOD COUNT 3.82 M/uL (4.2-5.4)
[2016-08-22 07:21] LABS: BUN/CREATININE RATIO 15.2 (10-20); CALCIUM 8.8 mg/dl (8.5-10.1); CREATININE 0.71 mg/dl (0.60-1.20); POTASSIUM 3.7 mmol/L (3.5-5.1)
[2016-08-22 07:46] VITALS: BP 160/85; PULSE 80; TEMP 36.7; O2SAT 93
[2016-08-22 08:10] VITALS: O2SAT 93
[2016-08-22] MEDS ORDERED: VANCOMYCIN TROUGH SCH (08:30)
--- NOTE | 2016-08-22 08:49 | DIAGNOSTIC IMAGING REPORT ---
PELVIS W/IV CONT ONLY (CT) HISTORY: Labial infection. TECHNIQUE: Multiaxial CT images of the pelvis are performed following the use of intravenous contrast. COMPARISON STUDY: None. FINDINGS: Within the right mons pubis there is a 2.3 x 2.0 x 0.5 cm fluid collection consistent with an abscess within the subcutaneous location. There are surrounding fat stranding and skin thickening. There is a small sinus tract to the skin surface best seen on image 986 of 1253. The bladder, uterus, and ovaries are unremarkable. No pelvic free fluid. Mild right inguinal lymphadenopathy is likely reactive. There is also mildly enlarged right external iliac lymph node which measures 2.3 x 1.0 cm. Small area of subcutaneous fat stranding and skin thickening within the midline of the abdomen is likely due to a site of prior medication injection. The visualized loops of bowel show no wall thickening or obstruction. Normal appendix. IMPRESSION: 1. There is a 2.3 x 2.0 x 0.5 cm subcutaneous fluid collection within the right mons pubis. This consistent with an abscess. There is surrounding skin thickening/fat stranding. This demonstrates a small sinus tract to the skin surface. 2. Mild right inguinal and external iliac lymphadenopathy which is likely reactive. Consider repeat CT at a later date once the patient's infectious process has resolved to ensure resolution of these findings. Electronically signed by: Reggie Enrique M.D. 08/22/2016 8:47 AM Dictated Date/Time: 08/22/2016 8:25 AM
[2016-08-22] MEDS: FLUTICASONE/SALMETEROL 250/50 (ADVAIR) 14 PUFF/1 INHALER INH SCH ×2 (09:01→21:10)
[2016-08-22] MEDS: FLUTICASONE PROPIONATE NA SPR 16 GM BTL NAE SCH ×2 (09:05→21:11)
[2016-08-22] MEDS: FEXOFENADINE HCL 180 MG TAB PO SCH (09:07)
[2016-08-22] MEDS: CYCLOBENZAPRINE HCL 10 MG TAB PO SCH ×3 (09:08→21:12)
[2016-08-22] MEDS: MULTIVITAMIN TAB PO SCH (09:09)
[2016-08-22] MEDS: OMEGA-3 (PURIFIED FISH OIL) 1 GM CAP PO SCH (09:10)
[2016-08-22] MEDS: VANCOMYCIN INJ 1,300 MG in SODIUM CHLORIDE 0.9% 250ML 250 ML IV SCH ×2 (09:12→21:16)
[2016-08-22] MEDS: INSULIN ASPART 100 UNITS/ML 3 ML PEN SC SCH ×4 (09:45→21:10)
[2016-08-22] MEDS: INSULIN GLARGINE SOLOSTAR 100 UNITS/ML 3 ML PEN SC SCH ×2 (09:49→21:09)
[2016-08-22 10:15] VITALS: O2SAT 93
--- NOTE | 2016-08-22 10:18 | Medical Consult ---
Consultation Date of Consultation: Aug 22, 2016. Attending Physician: Adriana Flores M.D. Reason for Consultation: Labial abscess/cellulitis History of Present Illness Patient is a 60-year-old female presents to the emergency department with complaints of right labia and right upper thigh tenderness and swelling. The patient states that she has had multiple small pustules and nodules on her inner thighs for the past couple of months starting in April. The patient was recently treated in June with Bactrim DS b.i.d. for 2 different courses. Her inner thigh lesions did resolve time, but she started to have increased lesions her right labia. She then noted increasing swelling, pain, and purulent drainage from this area. She did have a fever home to 100.6. She was seen at her water pollution specialist in regards to these symptoms and was sent to the emergency department for concerns of abscess. The patient did have this area drained and cultured. Her culture is growing MRSA that is also resistant to erythromycin. The patient is currently on IV vancomycin. Her pain is slightly improved today after I and D of this area. Her white blood cell count on admission was 15.17. Her creatinine today was 0.71. Her white blood cell count has been trending down. It is noted that her hep C screen was negative. She did have a pelvic CT scan done this morning which showed a 2.3 x 2 x 0.5 cm subcutaneous fluid collection within the right mons pubis with surrounding skin thickening/fat stranding. This is consistent with a small abscess. Mild right inguinal and external iliac lymphadenopathy was also noted on CT scan. I did also discuss this patient with Dr. Avila. Past Medical/Surgical History Medical Problems: (1) Abscess of right thigh Status: Acute (2) Sepsis Status: Acute Medical Problems: (1) Diabetes (2) DM type 2 (diabetes mellitus, type 2) (3) Hypothyroidism (4) Labial infection (5) Obesity (BMI 30-39.9) (6) Obstructive lung disease Surgical Problems: (1) H/O dilation and curettage Family History Cardiac disorder MOTHER SISTER Diabetes mellitus MOTHER SISTER FH: emphysema FATHER Hypertension SISTER Noncontributory Social History Smoking Status: Never Smoker Alcohol Use: occasionally Drug Use: none Marital Status: Housing Status: lives with family Occupation Status: employed Allergies Coded Allergies: Penicillins (Verified Allergy, Severe, RASH, JOINT PAIN, 08/20/16) Home Medications Reported Home Medications Medications Dose Route/Sig Max Daily Dose Days Date Category Multivitamin (Multiple Vitamin) 1 Tab Tab 1 Tab PO DAILY 08/20/16 Reported [place]-3 (Fish Oil) 1 Ea Cap 1 Cap PO DAILY 08/20/16 Reported Proair Respiclick (Albuterol Sulfate) 108 Mcg/Act Aer 2 Puffs INH Q4 PRN 08/20/16 Reported Kaelyn Allergy (Fexofenadine Hcl) 180 Mg Tab 1 Tab PO DAILY 30 08/20/16 Reported Aspirin Ec (Aspirin) 81 Mg Tab 162 Mg PO HS 08/20/16 Reported Glucophage (Metformin Hcl) 1,000 Mg Tab 1,000 Mg PO BID 08/20/16 Reported Lantus (Insulin Glargine) 100 Unit/Ml Inj 50 Units SC QPM 08/20/16 Reported Novolin R (Insulin Human Regular) 1 Unit/1 Ml Inj SQ TIDM 08/20/16 Reported Flonase Allergy Relief (Fluticasone Propionate (Nasal)) 50 Mcg/Act Spr 2 Sprays JOSUE BID 08/20/16 Reported Advair Diskus 250/50 60 Dose (Fluticasone Prop/Salmeterol) 1 Ea Aerp 1 Puff INH BID 08/20/16 Reported Synthroid (Levothyroxine Sodium) 125 Mcg Tab 125 Mcg PO DAILY 08/20/16 Reported Zestril (Lisinopril) 20 Mg Tab 20 Mg PO QPM 08/20/16 Reported Flexeril (Cyclobenzaprine Hcl) 10 Mg Tab 10 Mg PO TID 08/20/16 Reported Current Inpatient Medications Current Inpatient Medications Medications (Trade) Dose Ordered Sig/[place] Route Start Time Stop Time Status Last Admin Dose Admin Heparin Sodium (Porcine) (Heparin Sq 5000 Unit/0.5ml) 5,000 unit Q8H SQ 08/21/16 06:00 09/20/16 05:59 08/22/16 05:48 5,000 UNIT Acetaminophen (Tylenol Tab) 650 mg Q4H PRN PO 08/20/16 22:15 09/19/16 22:14 08/21/16 19:21 650 MG Ondansetron HCl (Zofran Inj) 4 mg Q6H PRN IV 08/20/16 22:15 09/19/16 22:14 Glucose (Glucose 40% Gel) 15-30 GRAMS 15 GRAMS... UD PRN PO 08/20/16 22:15 09/19/16 22:14 Glucose (Glucose Chew Tab) 4-8 Tablets 4 Tabl... UD PRN PO 08/20/16 22:15 09/19/16 22:14 Dextrose (Dextrose 50% 50ML Syringe) 25-50ML OF 50% DW IV FOR... UD PRN IV 08/20/16 22:15 09/19/16 22:14 Glucagon (Glucagon Inj) 1 mg UD PRN SQ 08/20/16 22:15 09/19/16 22:14 Miscellaneous Information (Consult Glycemic Management Pharmacy) 1 ea UD PRN N/A 08/20/16 22:19 09/19/16 22:18 Aspirin (Ecotrin Tab) 162 mg HS PO 08/21/16 21:00 09/20/16 20:59 08/21/16 21:13 162 MG Cyclobenzaprine HCl (Flexeril Tab) 10 mg TID PO 08/21/16 09:00 09/20/16 08:59 08/22/16 09:08 10 MG Fexofenadine HCl (Kaelyn Tab) 180 mg DAILY PO 08/21/16 09:00 09/20/16 08:59 08/22/16 09:07 180 MG Fish Oil ([place]-3 (Purified Fish Oil) Cap) 1 gm DAILY PO 08/21/16 09:00 09/20/16 08:59 08/22/16 09:10 1 GM Salmeterol Xinafoate/ Fluticasone (Advair Diskus 250/50 Inh) 1 puff BID INH 08/21/16 09:00 09/20/16 08:59 08/22/16 09:01 1 PUFF Fluticasone Propionate (Flonase Nasal [place]) 2 sprays BID JOSUE 08/21/16 09:00 09/20/16 08:59 08/22/16 09:05 2 SPRAYS Levothyroxine Sodium (Synthroid Tab) 125 mcg DAILYBB PO 08/21/16 06:00 09/20/16 06:59 08/21/16 05:50 125 MCG Lisinopril (Zestril Tab) 20 mg QPM PO 08/21/16 21:00 09/20/16 20:59 08/21/16 21:14 20 MG Multivitamins (Multivitamin Tab) 1 tab DAILY PO 08/21/16 09:00 09/20/16 08:59 08/22/16 09:09 1 TAB Albuterol (Ventolin Hfa Inhaler) 2 puffs Q4 PRN INH 08/20/16 22:30 09/19/16 22:29 Vancomycin HCl 1 ea 1 ea DAILY PRN N/A 08/20/16 23:16 09/19/16 23:15 Vancomycin HCl 1300 mg/Sodium Chloride 276 ml @ 125 mls/hr Q12H IV 08/21/16 09:00 08/31/16 08:59 08/22/16 09:12 125 MLS/HR Sodium Chloride (Nss 1000ml) 1,000 ml @ 80 mls/hr [id number] IV 08/21/16 02:00 09/20/16 01:59 08/22/16 03:16 80 MLS/HR Insulin Glargine (Lantus Solostar Pen) SEE PROTOCOL BID SC 08/21/16 21:00 09/20/16 20:59 08/22/16 09:49 10 UNIT Acetaminophen/ Hydrocodone Bitart ([place] 5/325 Tab) 1 tab Q4 PRN PO 08/21/16 22:00 09/04/16 21:59 Acetaminophen/ Hydrocodone Bitart ([place] 5/325 Tab) 2 tab Q4 PRN PO 08/21/16 22:00 09/04/16 21:59 Morphine Sulfate (MoRPHine SULFATE INJ) 2 mg Q4H PRN IV 08/21/16 22:00 09/04/16 21:59 08/22/16 03:35 2 MG Morphine Sulfate (MoRPHine SULFATE INJ) 4 mg Q4H PRN IV 08/21/16 22:00 09/04/16 21:59 Ioversol (Optiray 320) 100 ml UD PRN IV 08/22/16 06:45 08/26/16 06:44 Insulin Aspart (novoLOG ASPART) SLIDING SCALE If C... ACHS SC 08/22/16 12:00 09/21/16 11:59 08/22/16 09:45 4 UNITS Review of Systems Constitutional: + chills, + fever, + sweats (now resolved) Eyes: No worsening of vision ENT: No hearing loss Respiratory: No cough Cardiovascular: No chest pain Abdomen: No diarrhea, No pain Musculoskeletal: + swelling (right labia), No joint pain Integumentary: + color change (boils/pimples of the inner thighs and now labia - s/p I & D), No itch, No rash Physical Exam Date Time Temp Pulse Resp B/P Pulse Ox O2 Delivery O2 Flow Rate FiO2 08/22/16 08:10 93 Room Air 08/22/16 08:10 Room Air 08/22/16 07:46 36.7 80 20 160/85 93 Room Air 08/21/16 23:49 36.7 78 18 117/76 96 Room Air 08/21/16 23:30 Room Air 08/21/16 19:20 Room Air 08/21/16 15:14 36.7 84 18 115/74 95 Room Air General Appearance: no apparent distress, + obese Head: normocephalic, atraumatic Eyes: normal inspection, sclerae normal ENT: hearing grossly normal Neck: supple, trachea midline Respiratory/Chest: chest non-tender, lungs clear, normal breath sounds, no respiratory distress, no accessory muscle use Cardiovascular: regular rate, rhythm, no murmur Abdomen/GI: normal bowel sounds, non tender, soft Back: normal inspection Extremities/Musculoskelatal: normal range of motion Neurologic/Psych: alert, normal mood/affect Skin: no rash, + pertinent finding (right labial edema, erythema, drainage from wound (purulent). Small skin lesion also of right inner thigh- no drainage but mild surrounding erythema) Laboratory Results RUN DATE: 08/22/16 [facility] LAB PAGE 1 RUN TIME: 801 Specimen Inquiry PATIENT: EVI WOLFE LOC: [facility] U # : [id number] AGE/SX: 60/F ROOM: 76 REG : 08/20/[address]: Adriana Flores M.D. : 1955 BED: 2 DIS : STATUS: ADM IN TLOC: SPEC #: [id number] HIREN: 08/20/16-2049 STATUS: RES REQ #: [id number] RECD: 08/20/[address]: Wally Eastman M.D. SOURCE: ABSCESS ENTR: 08/20/[address] [facility] [address]: Pee Garrett M.D. [facility] Jayna CHATMAN Philip A., M.D. ORDERED: TOM WYNNE CUL/JACQUI COMMENTS: Has Specimen Been Obtained/Collected? Y Procedure Result Verified Site GRAM STAIN Final 08/21/16-733 RESULT FEW WBCs SEEN NO ORGANISMS SEEN DEEP WOUND CULTURE Preliminary 08/22/16-08 Organism 1 STAPHYLOCOCCUS AUREUS QUANITY FEW SENS SENSITIVITY TO FOLLOW SENSITIVITY RESULT INDICATES A METHICILLIN RESISTANT STAPH. AUREUS. PHONED TO BLADIMIR MULTANI ON 08/22/16 AT 0800 BY Leeanna Herrera. Results were verbalized back to RESULTS WERE ALSO CALLED TO [facility] CONTROL ANSWERING MACHINE ON 08/22/16 BY 1. STAPHYLOCOCCUS AUREUS Target Route Dose RX AB Cost M.I.C. IQ ------ ----- ------ -- ------ -------- - ------ TRIMET/SULFA S <=0.5/ 9.5 * OXACILLIN R * >2 VANCOMYCIN S 2 ERYTHROMYCIN R >4 TETRACYCLINE S <=4 CLINDAMYCIN S <=0.5 DAPTOMYCIN S <=0.5 RIFAMPIN S <=1 S = SENSITIVE I = INTERMEDIATE R = RESISTANT Item Value Date Time MRSA DNA Surveillance Screen - Final Complete 08/21/162104 Nasal Specimen Negative for MRSA by DNA Probe Gram Stain - Final Resulted 08/20/162049 Abscess Thigh , Right Blood Culture - Preliminary Resulted 08/20/161934 Blood NO GROWTH TO DATE. Blood Culture - Preliminary Resulted 08/20/161929 Blood NO GROWTH TO DATE. Last 24 Hours Test 08/21/16 12:14 08/21/16 16:54 08/21/16 20:47 08/22/16 05:37 Bedside Glucose 165 mg/dl 150 mg/dl 168 mg/dl 118 mg/dl Test 08/22/16 06:50 08/22/16 08:43 White Blood Count 10.70 K/uL Red Blood Count 3.82 M/uL Hemoglobin 12.4 g/dL Hematocrit 36.8 % Mean Corpuscular Volume 96.3 fL Mean Corpuscular Hemoglobin 32.5 pg Mean Corpuscular Hemoglobin Concent 33.7 g/dl RDW Standard Deviation 46.1 fL RDW Coefficient of Variation 13.2 % Platelet Count 203 K/uL Mean Platelet Volume 10.0 fL Sodium Level 142 mmol/L Potassium Level 3.7 mmol/L Chloride Level 111 mmol/L Carbon Dioxide Level 25 mmol/L Anion Gap 6.0 mmol/L Blood Urea Nitrogen 11 mg/dl Creatinine 0.71 mg/dl Est Creatinine Clear Calc Drug Dose 96.7 ml/min Estimated GFR () 105.8 Estimated GFR (Non- 91.3 BUN/Creatinine Ratio 15.2 Random Glucose 125 mg/dl Calcium Level 8.8 mg/dl Vancomycin Level Trough 11.1 mcg/ml Assessment & Plan Patient with right labial abscess, labial cellulitis, MRSA, and recurrent boils/ pustules. She is currently on IV Vancomycin. This is reasonable pending further improvement. Patient likely will need at least a couple more days of IV abx. CT scan showed continued small abscess of the labia. Will re-evaluate on Thursday. Patient may need further surgical or continued IV therapy intervention pending improvement. We will follow. Note: This document was dictated utilizing [employer] voice recognition software. Minor errors in soaker hides may be present. PROVIDER ADDENDUM: Patient examined and reviewed with Ms. Brian. Agree with above assessment.
[2016-08-22] MEDS: MoRPHine SULFATE 4 MG/ML 1 ML CARP\\VIAL IV PRN ×2 (11:42→21:18)
--- NOTE | 2016-08-22 12:23 | Pharmacy Progress Note ---
Pharmacy Antibiotic Prog Note Date of Service: Aug 22, 2016. Subjective: The patient is currently receiving vancomycin 1300 mg iv q 12 hrs for cellulitis infection The patient is currently on day # 3 of IV therapy. Objective: Height (Feet): 5 Height (Inches): 5.00 Weight (Kilograms): 100.900 Levels: Item Value Date Time Vancomycin Level Trough 11.1 mcg/ml 08/22/16 0843 Lab Results (24hrs): Laboratory Tests Test 08/22/16 06:50 BUN/Creatinine Ratio 15.2 Blood Urea Nitrogen 11 mg/dl Creatinine 0.71 mg/dl White Blood Count 10.70 K/uL Assessment & Plan: Patient receiving vancomycin for right labial abscess, MRSA infection. ID is following the patient. CT scan shows continued small abscess, may need further surgical intervention. Vancomycin: * Trough level this am was slightly subtherapeutic at ~11 mcg/ml (goal 15-20 mcg /ml for abscess infection) however drawn before steady state * Therefore, will continue with current regimen estimated level at steady state probably closer to ~15 mcg/ml. Patient also at risk for drug accumulation since elevated BMI>35 kg/m2 (actual BMI~37 kg/m2) * Will recheck trough prior to the 0900 dose on 08/23 to ensure therapeutic Pharmacy will continue to follow and will adjust dose/frequency as necessary. Thank you
[2016-08-22 15:38] VITALS: BP 125/73; PULSE 76; TEMP 36.6; O2SAT 94
--- NOTE | 2016-08-22 21:05 | Progress Note ---
Internal Med Progress Note Date of Service: Aug 22, 2016. Provider Documentation: SUBJECTIVE: pain and swelling on rt thigh area much improved no fever or chills OBJECTIVE: Vital Signs-as noted below Exam: General-no sign of distress Eyes-non icteric sclera ENT-NAD Neck-no JVD Lungs-CTA Heart-regular S1/S2 Abdomen-soft, non tender Extremities-red /erythematous rt labia and mons pubis , drainage of pus /small scabbed lesion on rt inner thigh Neuro-no focal deficit Lab data as noted below. ASSESSMENT & PLAN: SEPSIS DUE TO RIGHT LABIA/ RIGHT THIGH CELLULITIS Met criteria for sepsis with fever (38.1 SALES CLERK in clinic); HR in 90s, leukocytosis (WBC 15k); however lactic acid WNL and BP's are stable so sepsis considered less likely S/p drainage of right thigh abscess in ED WOUND culture staph aureus cont IV Vancomycin ID consulted surgery consult requested to further assessment and possible drainage of abscess HYPERTENSION BP stable Continue lisinopril with parameter DM TYPE 2 Hold metformin during hospitalization Hold Lantus due to hypoglycemia episode at home SALES CLERK Insulin sliding scale coverage Consulted pharmacy for glycemic control OBSTRUCTIVE LUNG DISEASE Not in exacerbation Continue Advair and PRN albuterol Follows with Dr. Flores HYPOTHYROIDISM Continue levothyroxine CODE STATUS Full code DVT PROPHYLAXIS Heparin SQ DISPOSITION Discharge home when medically stable Medicine follow up with Dr Gallardo Vital Signs: Date Time Temp Pulse Resp B/P Pulse Ox O2 Delivery O2 Flow Rate FiO2 08/23/16 14:53 36.6 77 18 112/72 94 Room Air 08/23/16 14:00 94 Room Air 08/23/16 11:43 36.5 73 18 105/64 94 Room Air 08/23/16 08:02 93 Room Air 08/23/16 07:52 36.5 65 18 110/68 93 Room Air 08/23/16 07:50 Room Air 08/23/16 07:18 36.7 76 20 125/73 94 Room Air 08/22/16 23:50 Room Air 08/22/16 23:40 36.5 70 18 133/81 94 Room Air Lab Results: Results Past 24 Hours Test 08/23/16 07:31 08/23/16 08:40 08/23/16 11:25 08/23/16 16:49 Range/Units Bedside Glucose 126 175 157 70-90 mg/dl White Blood Count 7.37 4.8-10.8 K/uL Red Blood Count 3.92 4.2-5.4 M/uL Hemoglobin 12.5 12.0-16.0 g/dL Hematocrit 37.1 37-47 % Mean Corpuscular Volume 94.6 80-100 fL Mean Corpuscular Hemoglobin 31.9 25-34 pg Mean Corpuscular Hemoglobin Concent 33.7 32-36 g/dl RDW Standard Deviation 45.3 36.4-46.3 fL RDW Coefficient of Variation 13.2 11.5-14.5 % Platelet Count 234 130-400 K/uL Mean Platelet Volume 10.0 7.4-10.4 fL Sodium Level 141 136-145 mmol/L Potassium Level 3.9 3.5-5.1 mmol/L Chloride Level 108 98-107 mmol/L Carbon Dioxide Level 25 21-32 mmol/L Anion Gap 8.0 3-11 mmol/L Blood Urea Nitrogen 12 7-18 mg/dl Creatinine 0.74 0.60-1.20 mg/dl Est Creatinine Clear Calc Drug Dose 92.8 ml/min Estimated GFR () 100.6 Estimated GFR (Non- 86.8 BUN/Creatinine Ratio 16.1 10-20 Random Glucose 131 70-99 mg/dl Calcium Level 9.1 8.5-10.1 mg/dl Vancomycin Level Trough 12.1 SEE COMMENT mcg/ml
[2016-08-22] MEDS: LISINOPRIL 20 MG TAB PO SCH (21:11)
[2016-08-22] MEDS: ASPIRIN 81 MG ECTAB PO SCH (21:12)
[2016-08-22 23:40] VITALS: BP 133/81; PULSE 70; TEMP 36.5; O2SAT 94
[2016-08-23] VITALS (7 sets, daily range): BP systolic 100–125; BP diastolic 46–73; PULSE 65–92; TEMP 36.5–37.1; O2SAT 91–94
[2016-08-23] MEDS: LEVOTHYROXINE 125 MCG TAB PO SCH (06:33)
[2016-08-23] MEDS: MoRPHine SULFATE 4 MG/ML 1 ML CARP\\VIAL IV PRN (06:33)
[2016-08-23] MEDS: HEPARIN SOD 5000 UNIT/0.5 ML CARP SQ SCH ×3 (06:36→22:08)
[2016-08-23] MEDS ORDERED: VANCOMYCIN TROUGH ONE (08:30)
[2016-08-23] MEDS: FLUTICASONE/SALMETEROL 250/50 (ADVAIR) 14 PUFF/1 INHALER INH SCH ×2 (08:52→22:04)
[2016-08-23] MEDS: FLUTICASONE PROPIONATE NA SPR 16 GM BTL NAE SCH ×2 (08:53→22:05)
[2016-08-23] MEDS: CYCLOBENZAPRINE HCL 10 MG TAB PO SCH ×3 (08:55→22:08)
[2016-08-23] MEDS: FEXOFENADINE HCL 180 MG TAB PO SCH (08:55)
[2016-08-23] MEDS: MULTIVITAMIN TAB PO SCH (08:56)
[2016-08-23] MEDS: OMEGA-3 (PURIFIED FISH OIL) 1 GM CAP PO SCH (08:59)
[2016-08-23 09:16] LABS: BUN/CREATININE RATIO 16.1 (10-20); CALCIUM 9.1 mg/dl (8.5-10.1); CREATININE 0.74 mg/dl (0.60-1.20); POTASSIUM 3.9 mmol/L (3.5-5.1)
[2016-08-23 09:20] LABS: HEMATOCRIT 37.1 % (37-47); MEAN CELL VOLUME 94.6 fL (80-100); MEAN CORPUSCULAR HEMOGLOBIN 31.9 pg (25-34); MEAN CORPUSCULAR HGB CONC 33.7 g/dl (32-36); PLATELET COUNT 234 K/uL (130-400); RED BLOOD COUNT 3.92 M/uL (4.2-5.4); WHITE BLOOD COUNT 7.37 K/uL (4.8-10.8)
[2016-08-23] MEDS: INSULIN ASPART 100 UNITS/ML 3 ML PEN SC SCH ×4 (09:20→21:00)
[2016-08-23] MEDS: INSULIN GLARGINE SOLOSTAR 100 UNITS/ML 3 ML PEN SC SCH ×2 (09:22→22:07)
--- NOTE | 2016-08-23 09:45 | Surgery Progress Note ---
Surgery Progress Note Date of Service Aug 23, 2016. Subjective Post OP Day: HD 3 + diet, + feeling well, + pain controlled clinically area feels better Objective Vital Signs: Date Time Temp Pulse Resp B/P Pulse Ox O2 Delivery O2 Flow Rate FiO2 08/23/16 08:02 93 Room Air 08/23/16 07:52 36.5 65 18 110/68 93 Room Air 08/23/16 07:50 Room Air 08/23/16 07:18 36.7 76 20 125/73 94 Room Air 08/22/16 23:50 Room Air 08/22/16 23:40 36.5 70 18 133/81 94 Room Air 08/22/16 15:38 36.6 76 18 125/73 94 Room Air 08/22/16 15:30 Room Air 08/22/16 10:15 93 Room Air General Appearance: WD/WN, no apparent distress Head: normocephalic, atraumatic Neck: supple, trachea midline Respiratory/Chest: lungs clear Cardiovascular: regular rate, rhythm Abdomen: normal bowel sounds, non tender, non distended, soft Incision(s): clean, erythema (improving), findings (packed with iodoform; less erythema; no fluctuance) Extremities: non-tender, no pedal edema Laboratory Results: Results Past 24 Hours Test 08/22/16 11:27 08/22/16 16:48 08/22/16 20:18 08/23/16 07:31 Range/Units Bedside Glucose 181 122 156 126 70-90 mg/dl Test 08/23/16 08:40 Range/Units White Blood Count 7.37 4.8-10.8 K/uL Red Blood Count 3.92 4.2-5.4 M/uL Hemoglobin 12.5 12.0-16.0 g/dL Hematocrit 37.1 37-47 % Mean Corpuscular Volume 94.6 80-100 fL Mean Corpuscular Hemoglobin 31.9 25-34 pg Mean Corpuscular Hemoglobin Concent 33.7 32-36 g/dl RDW Standard Deviation 45.3 36.4-46.3 fL RDW Coefficient of Variation 13.2 11.5-14.5 % Platelet Count 234 130-400 K/uL Mean Platelet Volume 10.0 7.4-10.4 fL Sodium Level 141 136-145 mmol/L Potassium Level 3.9 3.5-5.1 mmol/L Chloride Level 108 98-107 mmol/L Carbon Dioxide Level 25 21-32 mmol/L Anion Gap 8.0 3-11 mmol/L Blood Urea Nitrogen 12 7-18 mg/dl Creatinine 0.74 0.60-1.20 mg/dl Est Creatinine Clear Calc Drug Dose 92.8 ml/min Estimated GFR () 100.6 Estimated GFR (Non- 86.8 BUN/Creatinine Ratio 16.1 10-20 Random Glucose 131 70-99 mg/dl Calcium Level 9.1 8.5-10.1 mg/dl Vancomycin Level Trough 12.1 SEE COMMENT mcg/ml Assessment & Plan right labial cellulitis/abscess -drained with packing -responding to IV abx -no obvious undrained collections -con't IV abx
[2016-08-23] MEDS: VANCOMYCIN INJ 1,300 MG in SODIUM CHLORIDE 0.9% 250ML 250 ML IV SCH ×2 (10:46→22:04)
--- NOTE | 2016-08-23 13:56 | Pharmacy Progress Note ---
Glycemic: Assessment & Plan Date of Service Aug 23, 2016. Assessment & Plan The patient received 36 units of insulin on 08/21, 49 units on 08/22. BSGs ranging 122-165 mg/dl over the past 24hrs. Decreased goal range a bit for tighter control. She has been alternating 10 and 20 units of Lantus (based on BSG), so will change Lantus to 15 units bid. Will reassess in am. * Basal insulin: Lantus 15 units every 12 hours * Correctional Insulin: Novolog Correction per scale ACHS Goal Range: Low 100 mg/dL - High 140 mg/dL Correction Factor: 30 mg/dL/unit * Prandial insulin: Per carb ratio of 1 unit per 10 grams CHO consumed BSGs continue to improve, no other changes needed to inpatient regimen at this time. Pharmacy will continue to monitor patient daily and write orders per [facility] inpatient glycemic control protocol. Thanks. * Please note that the plan above was derived based on current level of insulin resistance and hospital stress. These recommendations are appropriate for inpatient admission only. Plan of care upon discharge will need to be reassessed to avoid potential outpatient hypo/hyperglycemia.
--- NOTE | 2016-08-23 15:22 | Pharmacy Progress Note ---
Pharmacy Antibiotic Prog Note Date of Service: Aug 23, 2016. Subjective: The patient is currently receiving Vancomycin 1300mg IV q12h. The patient is currently on day #4 of IV therapy. Objective: Height (Feet): 5 Height (Inches): 5.00 Weight (Kilograms): 100.900 Levels: Item Value Date Time Vancomycin Level Trough 11.1 mcg/ml 08/22/16 0843 Vancomycin Level Trough 12.1 mcg/ml 08/23/16 0840 Lab Results (24hrs): Laboratory Tests Test 08/23/16 08:40 BUN/Creatinine Ratio 16.1 Blood Urea Nitrogen 12 mg/dl Creatinine 0.74 mg/dl White Blood Count 7.37 K/uL Micro Results: Item Value Date Time Blood Culture - Preliminary Resulted 08/20/161929 Blood NO GROWTH TO DATE. Blood Culture - Preliminary Resulted 08/20/161934 Blood NO GROWTH TO DATE. Gram Stain - Final Complete 08/20/162049 Abscess Thigh , Right MRSA DNA Surveillance Screen - Final Complete 08/21/162104 Nasal Specimen Negative for MRSA by DNA Probe RUN DATE: 08/22/16 [facility] PAGE 1 RUN TIME: 1213 Specimen Inquiry PATIENT: EVI WOLFE LOC: [facility] U # : [id number] AGE/SX: 60/F ROOM: [facility] REG : 08/20/[address]: Adriana Flores M.D. : 1955 BED: 2 DIS : STATUS: ADM IN TLOC: SPEC #: [id number] HIREN: 08/20/16 STATUS: COMP REQ #: [id number] RECD: 08/20/[address] [facility] [address]: Wally Eastman M.D. SOURCE: ABSCESS ENTR: 08/20/[address] [facility] DR: Pee Garrett M.D. SPDESC: Jayna CHATMAN Philip A., M.D. ORDERED: TOM FREITAS/JACQUI COMMENTS: Has Specimen Been Obtained/Collected? Y Procedure Result Verified Site GRAM STAIN Final 08/21/16-0734 RESULT FEW WBCs SEEN NO ORGANISMS SEEN DEEP WOUND CULTURE Final 08/22/16-1213 Organism 1 STAPHYLOCOCCUS AUREUS QUANITY FEW SENS SENSITIVITY TO FOLLOW SENSITIVITY RESULT INDICATES A METHICILLIN RESISTANT STAPH. AUREUS. PHONED TO BLADIMIR MULTANI ON 08/22/16 AT 0800 BY Leeanna Herrera. Results were verbalized back to ANGEL. RESULTS WERE ALSO CALLED TO [facility] INFECTION CONTROL ANSWERING MACHINE ON 08/22/16 BY 1. STAPHYLOCOCCUS AUREUS Target Route Dose RX AB Cost M.I.C. IQ ------ ----- ------ -- ------ -------- - ------ TRIMET/SULFA S <=0.5/ 9.5 * OXACILLIN R * >2 VANCOMYCIN S 2 ERYTHROMYCIN R >4 TETRACYCLINE S <=4 CLINDAMYCIN S <=0.5 DAPTOMYCIN S <=0.5 RIFAMPIN S <=1 S = SENSITIVE I = INTERMEDIATE R = RESISTANT Recent Pertinent Medications: Item Value Date Time Vancomycin HCl 550 ml @ 200 mls/hr 08/20/16 2018 2500 mg/Sodium ONE STAT/IV 08/20/16 2117 Chloride Vancomycin HCl 276 ml @ 125 mls/hr 08/21/16 0900 1300 mg/Sodium Q12H/IV 08/23/16 1046 Chloride Assessment & Plan: Vancomycin * 60 yo F with MRSA cellulitis of right labia/thigh * Goal trough level: 10-20mcg/mL * Trough level drawn: 12.1mcg/mL --> Therapeutic * Est half-life ~ 8.5hr but pt at high risk for accumulation due to BMI of 37kg/ m2 * Continue: Vancomycin 1300mg IV q12h * Trough level recheck ordered for: 08/25/16 0900 dose Pharmacy will continue to follow and will adjust dose/frequency as necessary. Thank you
[2016-08-23] MEDS: MoRPHine SULFATE 2 MG/ML CARP IV PRN (17:46)
--- NOTE | 2016-08-23 20:38 | Progress Note ---
Internal Med Progress Note Date of Service: Aug 23, 2016. Provider Documentation: SUBJECTIVE: able to walk on hallway pain continues to get better , no fever or chills OBJECTIVE: Vital Signs-as noted below Exam: General-no sign of distress Eyes-non icteric sclera ENT-NAD Neck-no JVD Lungs-CTA Heart-regular S1/S2 Abdomen-soft, non tender Extremities-improved erythema on rt thigh area , continued purulent drainage with each packing change Neuro-no focal deficit Lab data as noted below. 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 This consistent with an abscess. There is surrounding skin thickening/fat stranding. This demonstrates a small sinus tract to the skin surface. -recommend continued IV ABx and dressing change -repeat CT pelvis on thursday , if no improvement of worsening of abscess , may need repeat I& D HYPERTENSION BP stable Continue lisinopril with parameter DM TYPE 2 Hold metformin during hospitalization Hold Lantus due to hypoglycemia episode at home NETWORK ADMIN Insulin sliding scale coverage Consulted pharmacy for glycemic control OBSTRUCTIVE LUNG DISEASE Not in exacerbation Continue Advair and PRN albuterol Follows with Dr. Flores HYPOTHYROIDISM Continue levothyroxine CODE STATUS Full code DVT PROPHYLAXIS Heparin SQ DISPOSITION Discharge home when medically stable Medicine follow up with Dr Gallardo Vital Signs: Date Time Temp Pulse Resp B/P Pulse Ox O2 Delivery O2 Flow Rate FiO2 08/23/16 14:53 36.6 77 18 112/72 94 Room Air 08/23/16 14:00 94 Room Air 08/23/16 11:43 36.5 73 18 105/64 94 Room Air 08/23/16 08:02 93 Room Air 08/23/16 07:52 36.5 65 18 110/68 93 Room Air 08/23/16 07:50 Room Air 08/23/16 07:18 36.7 76 20 125/73 94 Room Air 08/22/16 23:50 Room Air 08/22/16 23:40 36.5 70 18 133/81 94 Room Air Lab Results: Results Past 24 Hours Test 08/23/16 07:31 08/23/16 08:40 08/23/16 11:25 08/23/16 16:49 Range/Units Bedside Glucose 126 175 157 70-90 mg/dl White Blood Count 7.37 4.8-10.8 K/uL Red Blood Count 3.92 4.2-5.4 M/uL Hemoglobin 12.5 12.0-16.0 g/dL Hematocrit 37.1 37-47 % Mean Corpuscular Volume 94.6 80-100 fL Mean Corpuscular Hemoglobin 31.9 25-34 pg Mean Corpuscular Hemoglobin Concent 33.7 32-36 g/dl RDW Standard Deviation 45.3 36.4-46.3 fL RDW Coefficient of Variation 13.2 11.5-14.5 % Platelet Count 234 130-400 K/uL Mean Platelet Volume 10.0 7.4-10.4 fL Sodium Level 141 136-145 mmol/L Potassium Level 3.9 3.5-5.1 mmol/L Chloride Level 108 98-107 mmol/L Carbon Dioxide Level 25 21-32 mmol/L Anion Gap 8.0 3-11 mmol/L Blood Urea Nitrogen 12 7-18 mg/dl Creatinine 0.74 0.60-1.20 mg/dl Est Creatinine Clear Calc Drug Dose 92.8 ml/min Estimated GFR () 100.6 Estimated GFR (Non- 86.8 BUN/Creatinine Ratio 16.1 10-20 Random Glucose 131 70-99 mg/dl Calcium Level 9.1 8.5-10.1 mg/dl Vancomycin Level Trough 12.1 SEE COMMENT mcg/ml
[2016-08-23] MEDS: ASPIRIN 81 MG ECTAB PO SCH (22:08)
[2016-08-23] MEDS: LISINOPRIL 20 MG TAB PO SCH (22:09)
[2016-08-23] MEDS: ACETAMINOPHEN 325 MG TAB PO PRN (23:37)
[2016-08-24] MEDS: MoRPHine SULFATE 2 MG/ML CARP IV PRN ×3 (05:31→23:10)
[2016-08-24] MEDS: LEVOTHYROXINE 125 MCG TAB PO SCH (06:26)
[2016-08-24] MEDS: HEPARIN SOD 5000 UNIT/0.5 ML CARP SQ SCH ×3 (06:29→21:10)
[2016-08-24 07:07] VITALS: BP 113/72; PULSE 66; TEMP 36.4; O2SAT 94
[2016-08-24] MEDS: FLUTICASONE/SALMETEROL 250/50 (ADVAIR) 14 PUFF/1 INHALER INH SCH ×2 (08:55→20:52)
[2016-08-24] MEDS: FLUTICASONE PROPIONATE NA SPR 16 GM BTL NAE SCH ×2 (08:55→20:52)
[2016-08-24] MEDS: CYCLOBENZAPRINE HCL 10 MG TAB PO SCH ×3 (08:55→21:00)
[2016-08-24] MEDS: MULTIVITAMIN TAB PO SCH (08:56)
[2016-08-24] MEDS: FEXOFENADINE HCL 180 MG TAB PO SCH (08:56)
[2016-08-24] MEDS: OMEGA-3 (PURIFIED FISH OIL) 1 GM CAP PO SCH (08:56)
[2016-08-24] MEDS: INSULIN ASPART 100 UNITS/ML 3 ML PEN SC SCH ×4 (09:00→21:00)
[2016-08-24] MEDS: INSULIN GLARGINE SOLOSTAR 100 UNITS/ML 3 ML PEN SC SCH ×2 (09:00→21:09)
[2016-08-24] MEDS: VANCOMYCIN INJ 1,300 MG in SODIUM CHLORIDE 0.9% 250ML 250 ML IV SCH ×2 (09:02→21:11)
--- NOTE | 2016-08-24 09:38 | Surgery Progress Note ---
Surgery Progress Note Date of Service Aug 24, 2016. Subjective Post OP Day: HD 4 + complaints (pain minimal), + feeling well, + flatus Objective Vital Signs: Date Time Temp Pulse Resp B/P Pulse Ox O2 Delivery O2 Flow Rate FiO2 08/24/16 07:50 Room Air 08/24/16 07:07 36.4 66 18 113/72 94 Room Air 08/23/16 23:30 Room Air 08/23/16 23:00 36.9 66 16 118/46 91 Room Air 08/23/16 14:53 36.6 77 18 112/72 94 Room Air 08/23/16 14:00 94 Room Air 08/23/16 11:43 36.5 73 18 105/64 94 Room Air General Appearance: WD/WN, no apparent distress Head: normocephalic, atraumatic Neck: supple, trachea midline Respiratory/Chest: lungs clear Cardiovascular: regular rate, rhythm Abdomen: normal bowel sounds, non tender, non distended, soft Incision(s): clean, findings (still with some drainage) Extremities: non-tender, no pedal edema Laboratory Results: Results Past 24 Hours Test 08/23/16 11:25 08/23/16 16:49 08/23/16 20:36 08/24/16 07:38 Range/Units Bedside Glucose 175 157 124 136 70-90 mg/dl Assessment & Plan right labial cellulitis/abscess -drained with packing -responding to IV abx -no obvious undrained collections -con't IV abx -repeat CT scan in AM, doubt further surgical intervention needed right labial cellulitis/abscess -drained with packing -responding to IV abx -no obvious undrained collections -con't IV abx
[2016-08-24 15:16] VITALS: BP 141/81; PULSE 89; TEMP 36.7; O2SAT 93
[2016-08-24] MEDS: LISINOPRIL 20 MG TAB PO SCH (21:00)
[2016-08-24] MEDS: ASPIRIN 81 MG ECTAB PO SCH (21:01)
--- NOTE | 2016-08-24 21:02 | Progress Note ---
Internal Med Progress Note Date of Service: Aug 24, 2016. Provider Documentation: SUBJECTIVE: pain in inner thigh and groin area has much improved no fever or chills able to walk on hallway OBJECTIVE: Vital Signs-as noted below Exam: General-no sign of distress Eyes-non icteric sclera ENT-NAD Neck-no JVD Lungs-CTA Heart-regular S1/S2 Abdomen-soft, non tender Extremities-improved erythema on rt thigh area , continued purulent drainage with each packing change Neuro-no focal deficit Lab data as noted below. ASSESSMENT & PLAN: SEPSIS DUE TO RIGHT LABIA/ RIGHT THIGH CELLULITIS Met criteria for sepsis with fever (38.1 CELL BIOLOGY SCIENTIST in clinic); HR in 90s, leukocytosis (WBC 15k); however lactic acid WNL and BP's are stable so sepsis considered less likely S/p drainage of right thigh abscess in ED WOUND culture staph aureus -MRSA cont IV Vancomycin ID consulted surgery consult s/p drainage of Abscess CT pelvis shows : There is a 2.3 x 2.0 x 0.5 cm subcutaneous fluid collection within the right mons pubis. This consistent with an abscess. There is surrounding skin thickening/fat stranding. This demonstrates a small sinus tract to the skin surface. 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 Flores HYPOTHYROIDISM Continue levothyroxine CODE STATUS Full code DVT PROPHYLAXIS Heparin SQ DISPOSITION Discharge home when medically stable Medicine follow up with Dr Gallardo Vital Signs: Date Time Temp Pulse Resp B/P Pulse Ox O2 Delivery O2 Flow Rate FiO2 08/24/16 15:16 36.7 89 18 141/81 93 Room Air 08/24/16 07:50 Room Air 08/24/16 07:07 36.4 66 18 113/72 94 Room Air 08/23/16 23:30 Room Air 08/23/16 23:00 36.9 66 16 118/46 91 Room Air Lab Results: Results Past 24 Hours Test 08/24/16 07:38 08/24/16 11:42 08/24/16 17:28 08/24/16 20:38 Range/Units Bedside Glucose 136 196 121 136 70-90 mg/dl
[2016-08-24 23:15] VITALS: BP 122/73; PULSE 81; TEMP 36.6; O2SAT 91
[2016-08-25] MEDS: HYDROCODONE/ACETAMOPHEN 5/325MG TAB PO PRN ×3 (04:57→21:14)
[2016-08-25] MEDS: LEVOTHYROXINE 125 MCG TAB PO SCH (05:42)
[2016-08-25] MEDS: HEPARIN SOD 5000 UNIT/0.5 ML CARP SQ SCH ×3 (05:42→22:18)
--- NOTE | 2016-08-25 06:37 | Surgery Progress Note ---
Surgery Progress Note Date of Service Aug 25, 2016. Subjective feeling much better- discomfort with packing Objective Vital Signs: Date Time Temp Pulse Resp B/P Pulse Ox O2 Delivery O2 Flow Rate FiO2 08/24/16 23:17 Room Air 08/24/16 23:15 36.6 81 18 122/73 91 Room Air 08/24/16 15:16 36.7 89 18 141/81 93 Room Air 08/24/16 07:50 Room Air 08/24/16 07:07 36.4 66 18 113/72 94 Room Air Incision(s): drainage (Rt labia with much less cellulitis, edema, induration- much improved, wick in place) Laboratory Results: Results Past 24 Hours Test 08/24/16 07:38 08/24/16 11:42 08/24/16 17:28 08/24/16 20:38 Range/Units Bedside Glucose 136 196 121 136 70-90 mg/dl Assessment & Plan 08/25/16- Much improved from adm on IV atbx- For repeat CT today- would have to see significant fluid collection to operate- if no OP needed can d/c home, ?iv ATBX, visiting nurse ordered for packing and f/u in our office later this week- CT - I cannot see a fluid collection I would try to drain in OR resume diet, check final report- plan as above 08/22/16- adm with soft tissue cellulitis Rt labia and thigh- staph growing sensativity pending. pelvic CT pending. Seems to be improved on Vanco- may not require further surgery. Dr Gordon covering over weekend 08/22/16- adm with soft tissue cellulitis Rt labia and thigh- staph growing sensativity pending. pelvic CT pending. Seems to be improved on Vanco- may not require further surgery. Dr Gordon covering over weekend
[2016-08-25] MEDS ORDERED: OPTIRAY 320 IV PRN (07:15)
[2016-08-25 07:32] VITALS: BP 105/64; PULSE 67; TEMP 36.6; O2SAT 94
[2016-08-25] MEDS ORDERED: VANCOMYCIN TROUGH SCH (08:30)
[2016-08-25] MEDS: FLUTICASONE PROPIONATE NA SPR 16 GM BTL NAE SCH ×2 (08:39→21:49)
[2016-08-25] MEDS: FLUTICASONE/SALMETEROL 250/50 (ADVAIR) 14 PUFF/1 INHALER INH SCH ×2 (08:39→21:48)
[2016-08-25] MEDS: FEXOFENADINE HCL 180 MG TAB PO SCH (08:40)
[2016-08-25] MEDS: CYCLOBENZAPRINE HCL 10 MG TAB PO SCH ×3 (08:41→21:49)
[2016-08-25] MEDS: MULTIVITAMIN TAB PO SCH (08:42)
[2016-08-25] MEDS: OMEGA-3 (PURIFIED FISH OIL) 1 GM CAP PO SCH (08:42)
--- NOTE | 2016-08-25 08:44 | DIAGNOSTIC IMAGING REPORT ---
CT SCAN OF THE PELVIS WITH IV CONTRAST CLINICAL HISTORY: Follow-up labial cellulitis. COMPARISON STUDY: CT scan of the pelvis dated 08/22/2016. TECHNIQUE: Following the IV administration of 92 cc of Optiray 320, CT scan of the pelvis is performed from the pelvic inlet to the proximal femora. Images are reviewed in the axial, sagittal, and coronal planes. IV contrast was administered without complication. CT DOSE: 783.34 mGy.cm FINDINGS: There is mild persistent dermal thickening and inflammatory change seen within the labial soft tissues. This has significantly improved from 08/22/2016. The small fluid collection seen on 08/22/2016 has almost completely resolved. Only trace subcutaneous fluid is identified. No organized fluid collection is seen on today's examination. A tiny focus of subcutaneous gas is identified in the left labia on image 311 and may be treatment related. No additional foci of subcutaneous gas are identified. The bladder, uterus, and adnexa are normal as imaged. There is no pelvic sidewall or inguinal lymphadenopathy. Prominent right inguinal lymph nodes have decreased in size from 08/22/2016 and were likely on a reactive basis. The visualized small bowel loops and colon are normal in appearance. A normal appendix is identified. There is a tiny fat-containing umbilical hernia. Foci of subcutaneous induration and subcutaneous gas within the ventral abdominal pannus are likely related to subcutaneous injections. The skeletal structures are osteopenic. The bony pelvis appears intact. No lytic or blastic lesions are identified. Mild lumbosacral spondylosis is partially imaged. There is mild atherosclerotic calcification of the distal abdominal aorta and iliac vessels. The iliac arteries appear widely patent. The pelvic musculature is normal and symmetric. IMPRESSION: 1. Findings are consistent with resolving labial cellulitis. This has significantly improved as compared to 08/22/2016. 2. The organized fluid collection seen on 08/22/2016 has almost completely resolved. 3. Reactive inguinal lymph nodes have decreased in size from previous. Dictated: 08/25/2016 8:30 AM Transcribed: 08/25/2016 8:43 AM Yuval Electronically signed by: Sen Millan M.D. 08/25/2016 9:01 AM Dictated Date/Time: 08/25/2016 8:30 AM
[2016-08-25 09:06] VITALS: O2SAT 94
[2016-08-25] MEDS: INSULIN GLARGINE SOLOSTAR 100 UNITS/ML 3 ML PEN SC SCH ×2 (09:23→21:55)
[2016-08-25] MEDS: INSULIN ASPART 100 UNITS/ML 3 ML PEN SC SCH ×4 (09:23→21:00)
[2016-08-25] MEDS: VANCOMYCIN INJ 1,300 MG in SODIUM CHLORIDE 0.9% 250ML 250 ML IV SCH (09:36)
--- NOTE | 2016-08-25 11:55 | Pharmacy Progress Note ---
Pharmacy Antibiotic Prog Note Date of Service: Aug 25, 2016. Subjective: The patient is currently receiving Vancomycin 1300 mg (~13mg/kg) IV every 12 hours for cellulitis in an obese patient (BMI greater than 35kg/m2; BMI= 37kg/m2 ). The patient is currently on day # 610 of Vancomycin IV therapy. Objective: Height (Feet): 5 Height (Inches): 5.00 Weight (Kilograms): 100.900 Levels: Item Value Date Time Vancomycin Level Trough 15.3 mcg/ml 08/25/16 0825 Vancomycin Level Trough 12.1 mcg/ml 08/23/16 0840 Vancomycin Level Trough 11.1 mcg/ml 08/22/16 0843 Micro Results: Item Value Date Time MRSA DNA Surveillance Screen - Final Complete 08/21/162104 Nasal Specimen Negative for MRSA by DNA Probe Gram Stain - Final Complete 08/20/162049 Abscess Thigh , Right S. aureus Blood Culture - Preliminary Resulted 08/20/161934 Blood NO GROWTH TO DATE. Blood Culture - Preliminary Resulted 08/20/161929 Blood NO GROWTH TO DATE. SPEC #: [id number] HIREN: 08/20/16 STATUS: COMP REQ #: [id number] RECD: 08/20/[address] [facility] [address]: Wally Eastman M.D. SOURCE: ABSCESS ENTR: 08/20/[address]: Pee Garrett M.D. SPDESC: THIGH, R Pilgram, Jn Zhong M.D. ORDERED: TOM FREITAS/JACQUI COMMENTS: Has Specimen Been Obtained/Collected? Y Procedure Result Verified Site GRAM STAIN Final 08/21/16-0734 RESULT FEW WBCs SEEN NO ORGANISMS SEEN DEEP WOUND CULTURE Final 08/22/16-1213 Organism 1 STAPHYLOCOCCUS AUREUS QUANITY FEW SENS SENSITIVITY TO FOLLOW SENSITIVITY RESULT INDICATES A METHICILLIN RESISTANT STAPH. AUREUS. PHONED TO BLADIMIR MULTANI ON 08/22/16 AT 0800 BY Leeanna Herrera. Results were verbalized back to ANGEL. RESULTS WERE ALSO CALLED TO [facility] INFECTION CONTROL ANSWERING MACHINE ON 08/22/16 BY 1. STAPHYLOCOCCUS AUREUS Target Route Dose RX AB Cost M.I.C. IQ ------ ----- ------ -- ------ -------- - ------ TRIMET/SULFA S <=0.5/ 9.5 * OXACILLIN R * >2 VANCOMYCIN S 2 ERYTHROMYCIN R >4 TETRACYCLINE S <=4 CLINDAMYCIN S <=0.5 DAPTOMYCIN S <=0.5 RIFAMPIN S <=1 S = SENSITIVE I = INTERMEDIATE R = RESISTANT Recent Pertinent Medications: Item Value Date Time Ceftriaxone Sodium 1 gm 08/20/162017 (Rocephin Inj) NOW STAT/IV 08/20/162034 Ceftriaxone 50 ml @ 100 mls/hr 08/21/161999 Sodium 1 gm/ Q24H/IV 08/21/16 193 Dextrose Vancomycin HCl 550 ml @ 200 mls/hr 08/20/162017 2500 mg/Sodium ONE STAT/IV 08/20/16 211 Chloride Vancomycin HCl 276 ml @ 125 mls/hr 08/21/16 0900 1300 mg/Sodium Q12H/IV 08/25/16 0936 Chloride Assessment & Plan: Pharmacy has been consulted to dose and monitor Vancomycin for cellulitis in an obese patient (BMI greater than 35kg/m2; BMI= 37kg/m2). Vancomycin trough level of 15.3mcg/mL is: Therapeutic Continue Vancomycin 1300 mg (~13mg/kg) IV every 12 hours. * Goal trough level estimate: between 15 - 20 mcg/mL for Vancomycin susceptibility ALBIN=2. * Trough level to be drawn as needed if the patient's p'kinetic status changes or if therapy should extend beyond 10 days. Pharmacy will continue to follow and will adjust dose/frequency as necessary. Thank you
--- NOTE | 2016-08-25 14:56 | Pharmacy Progress Note ---
Glycemic: Assessment & Plan Date of Service Aug 25, 2016. Assessment & Plan ASSESSMENT: * Pharmacy was consulted by Jeanie Wells PA-C on 08/20/16 for glycemic control and to write orders per [facility] inpatient glycemic control protocol. * Major changes made by pharmacy to antidiabetic regimen include: * Decreasing inpatient SQ basal bolus insulin regimen as compared to outpatient dosing. Using weight based insulin dosing in house d/t controlled CHO intake for admission * Patient has been receiving/requiring ~ 40 units of insulin per day for adequate glycemic control * BSGs ranging 121-196 mg/dl * Regimen has only required minor adjustments over the past ~48hrs to achieve this level of control * Do not anticipate further changes in patient status that would quickly deteriorate glycemic control (i.e. patient to be NPO for upcoming procedure, steroids tapering, starting tube feedings, etc). * Please see recommendations for outpatient antidiabetic regimen below. PLAN FOR INPATIENT GLYCEMIC CONTROL: No changes needed to current regimen. * Continue basal insulin with Lantus 10 units SQ BID * Continue NovoLog per scale ACHS/Q6hrs while NPO * Goal range = 100-140mg/dl * CF = 30 mg/dl/unit * CR = 1 unit for ever 10 g CHO consumed * A1c added to discharge instructions to be communicated to PCP. * Pharmacy is signing off of glycemic consult and will no longer be making adjustments to inpatient regimen. Please feel free to re-consult if needed. Thank you. DISCHARGE RECOMMENDATIONS: * A1c 7.8 % on 08/21/16 * A1c is near goal range based on age/comorbidities * Recommend continuing previous outpatient regimen at discharge
--- NOTE | 2016-08-25 14:58 | Infectious Disease Progress Nt ---
Progress Note Date of Service Aug 25, 2016. Subjective WBC count was 7.37. Blood cultures showing NGTD. Repeat CT scan of the pelvis showed resolving cellulitis of the labia and almost complete resolution of the fluid collection previously seen. Patient states that her pain is controlled on current therapy. All Other Systems: Reviewed and Negative Medications Current Inpatient Medications Medications (Trade) Dose Ordered Sig/[place]on Route Start Time Stop Time Status Last Admin Dose Admin Heparin Sodium (Porcine) (Heparin Sq 5000 Unit/0.5ml) 5,000 unit Q8H SQ 08/21/16 06:00 09/20/16 05:59 08/25/16 14:36 5,000 UNIT Acetaminophen (Tylenol Tab) 650 mg Q4H PRN PO 08/20/16 22:15 09/19/16 22:14 08/23/16 23:37 650 MG Ondansetron HCl (Zofran Inj) 4 mg Q6H PRN IV 08/20/16 22:15 09/19/16 22:14 Glucose (Glucose 40% Gel) 15-30 GRAMS 15 GRAMS... UD PRN PO 08/20/16 22:15 09/19/16 22:14 Glucose (Glucose Chew Tab) 4-8 Tablets 4 Tabl... UD PRN PO 08/20/16 22:15 09/19/16 22:14 Dextrose (Dextrose 50% 50ML Syringe) 25-50ML OF 50% DW IV FOR... UD PRN IV 08/20/16 22:15 09/19/16 22:14 Glucagon (Glucagon Inj) 1 mg UD PRN SQ 08/20/16 22:15 09/19/16 22:14 Miscellaneous Information (Consult Glycemic Management Pharmacy) 1 ea UD PRN N/A 08/20/16 22:19 09/19/16 22:18 Aspirin (Ecotrin Tab) 162 mg HS PO 08/21/16 21:00 09/20/16 20:59 08/24/16 21:01 162 MG Cyclobenzaprine HCl (Flexeril Tab) 10 mg TID PO 08/21/16 09:00 09/20/16 08:59 08/25/16 13:57 10 MG Fexofenadine HCl (Kaelyn Tab) 180 mg DAILY PO 08/21/16 09:00 09/20/16 08:59 08/25/16 08:40 180 MG Fish Oil ([place]-3 (Purified Fish Oil) Cap) 1 gm DAILY PO 08/21/16 09:00 09/20/16 08:59 08/25/16 08:42 1 GM Salmeterol Xinafoate/ Fluticasone (Advair Diskus 250/50 Inh) 1 puff BID INH 08/21/16 09:00 09/20/16 08:59 08/25/16 08:39 1 PUFF Fluticasone Propionate (Flonase Nasal [place]) 2 sprays BID JOSUE 08/21/16 09:00 09/20/16 08:59 08/25/16 08:39 2 SPRAYS Levothyroxine Sodium (Synthroid Tab) 125 mcg DAILYBB PO 08/21/16 06:00 09/20/16 06:59 08/25/16 05:42 125 MCG Lisinopril (Zestril Tab) 20 mg QPM PO 08/21/16 21:00 09/20/16 20:59 08/24/16 21:00 20 MG Multivitamins (Multivitamin Tab) 1 tab DAILY PO 08/21/16 09:00 09/20/16 08:59 08/25/16 08:42 1 TAB Albuterol (Ventolin Hfa Inhaler) 2 puffs Q4 PRN INH 08/20/16 22:30 09/19/16 22:29 Vancomycin HCl 1 ea 1 ea DAILY PRN N/A 08/20/16 23:16 09/19/16 23:15 Vancomycin HCl/ Sodium Chloride (Vancomycin Inj/ Nss 250ml) 276 ml @ 125 mls/hr Q12H IV 08/21/16 09:00 08/31/16 08:59 08/25/16 09:36 125 MLS/HR Acetaminophen/ Hydrocodone Bitart ([place] 5/325 Tab) 1 tab Q4 PRN PO 08/21/16 22:00 09/04/16 21:59 08/24/16 20:52 1 TAB Acetaminophen/ Hydrocodone Bitart ([place] 5/325 Tab) 2 tab Q4 PRN PO 08/21/16 22:00 09/04/16 21:59 08/25/16 12:51 2 TAB Morphine Sulfate (MoRPHine SULFATE INJ) 2 mg Q4H PRN IV 08/21/16 22:00 4/6/17 21:59 08/24/16 23:10 2 MG Morphine Sulfate (MoRPHine SULFATE INJ) 4 mg Q4H PRN IV 08/21/16 22:00 09/04/16 21:59 08/23/16 06:33 4 MG Ioversol (Optiray 320) 100 ml UD PRN IV 08/22/16 06:45 08/26/16 06:44 Insulin Aspart (novoLOG ASPART) SLIDING SCALE If C... ACHS SC 08/22/16 12:00 09/21/16 11:59 08/25/16 13:00 6 UNITS Insulin Glargine (Lantus Solostar Pen) 10 unit BID SC 08/24/16 21:00 09/23/16 20:59 08/25/16 09:23 10 UNIT Ioversol (Optiray 320) 125 ml UD PRN IV 08/25/16 07:15 08/29/16 07:14 Objective Vital Signs Date Time Temp Pulse Resp B/P Pulse Ox O2 Delivery O2 Flow Rate FiO2 08/25/16 09:06 94 Room Air 08/25/16 08:00 Room Air 08/25/16 07:32 36.6 67 20 105/64 94 Room Air 08/24/16 23:17 Room Air 08/24/16 23:15 36.6 81 18 122/73 91 Room Air 08/24/16 15:16 36.7 89 18 141/81 93 Room Air Physical Exam General Appearance: no apparent distress, + obese Eyes: normal inspection, sclerae normal ENT: hearing grossly normal Neck: supple, trachea midline Respiratory/Chest: no respiratory distress, no accessory muscle use Cardiovascular: regular rate, rhythm Extremities: normal range of motion Neurologic/Psychiatric: alert, normal mood/affect Skin: warm/dry, no rash, + pertinent finding (Very small slightly erythematous lesion of the right upper thigh. Dark purple discoloration of the right labia. No continued erythema of the surrounding area. No drainage on exam.) Laboratory Results CT SCAN OF THE PELVIS WITH IV CONTRAST CLINICAL HISTORY: Follow-up labial cellulitis. COMPARISON STUDY: CT scan of the pelvis dated 08/22/2016. TECHNIQUE: Following the IV administration of 92 cc of Optiray 320, CT scan of the pelvis is performed from the pelvic inlet to the proximal femora. Images are reviewed in the axial, sagittal, and coronal planes. IV contrast was administered without complication. CT DOSE: 783.34 mGy.cm FINDINGS: There is mild persistent dermal thickening and inflammatory change seen within the labial soft tissues. This has significantly improved from 08/22/2016. The small fluid collection seen on 08/22/2016 has almost completely resolved. Only trace subcutaneous fluid is identified. No organized fluid collection is seen on today's examination. A tiny focus of subcutaneous gas is identified in the left labia on image 311 and may be treatment related. No additional foci of subcutaneous gas are identified. The bladder, uterus, and adnexa are normal as imaged. There is no pelvic sidewall or inguinal lymphadenopathy. Prominent right inguinal lymph nodes have decreased in size from 08/22/2016 and were likely on a reactive basis. The visualized small bowel loops and colon are normal in appearance. A normal appendix is identified. There is a tiny fat-containing umbilical hernia. Foci of subcutaneous induration and subcutaneous gas within the ventral abdominal pannus are likely related to subcutaneous injections. The skeletal structures are osteopenic. The bony pelvis appears intact. No lytic or blastic lesions are identified. Mild lumbosacral spondylosis is partially imaged. There is mild atherosclerotic calcification of the distal abdominal aorta and iliac vessels. The iliac arteries appear widely patent. The pelvic musculature is normal and symmetric. IMPRESSION: 1. Findings are consistent with resolving labial cellulitis. This has significantly improved as compared to 08/22/2016. 2. The organized fluid collection seen on 08/22/2016 has almost completely resolved. 3. Reactive inguinal lymph nodes have decreased in size from previous. Item Value Date Time Blood Culture - Preliminary Resulted 08/20/161934 Blood NO GROWTH TO DATE. Blood Culture - Preliminary Resulted 08/20/16 193 Blood NO GROWTH TO DATE. Last 24 Hours Test 08/24/16 17:28 08/24/16 20:38 08/25/16 07:45 08/25/16 08:25 Bedside Glucose 121 mg/dl 136 mg/dl 133 mg/dl Vancomycin Level Trough 15.3 mcg/ml Test 08/25/16 11:15 Bedside Glucose 165 mg/dl Assessment and Plan Patient with right labial abscess, labial cellulitis, MRSA, and recurrent boils/ pustules. She is currently on IV Vancomycin. Discussed with the patient that she would be a good candidate for PO Zyvox therapy or even IV Dalbavancin, but she would feel better continuing daily IV therapy. Therefore, recommend placement of PICC line. Will change to IV Daptomycin 4 mg/kg dosing following PICC placement for ease of at home use- note in CM note that she will have 100 % coverage. We will follow and manage abx as outpatient. PROVIDER ADDENDUM: Patient reviewed with Ms. Brian. Agree with above assessment.
[2016-08-25 15:34] VITALS: BP 121/74; PULSE 72; TEMP 36.6; O2SAT 92
[2016-08-25] MEDS ORDERED: HYDR-5688 PO (21:44)
[2016-08-25] MEDS ORDERED: DAPTOMYCIN (21:44)
[2016-08-25] MEDS ORDERED: DAPTOMYCIN IV (21:44)
[2016-08-25 21:48] VITALS: BP 120/77; PULSE 72
[2016-08-25] MEDS: LISINOPRIL 20 MG TAB PO SCH (21:49)
[2016-08-25] MEDS: ASPIRIN 81 MG ECTAB PO SCH (21:51)
--- NOTE | 2016-08-25 21:51 | Discharge Instructions ---
Discharge Instructions Date of Service Aug 25, 2016. Admission Reason for Admission: Labial Infection Discharge Discharge Diagnosis / Problem: RIGHT THIGH INFECTION /LABIAL ABSCESS Discharge Goals Goal(s): Decrease discomfort, Improve function, Increase independence, Improve disease control, Diagnostic testing, Therapeutic intervention Activity Recommendations Activity Limitations: resume your previous activity Shower/Bathe: no limitations . Instructions / Follow-Up Instructions / Follow-Up HOSPITAL FOLLOW UP WITH DR FORDE ON 09/01/2016 @ 11:10 AM at Internal Medicine [facility] FOLLOW UP WITH SURGERY DR ALVAREZ IN 1-2 WEEKS, PLEASE CALL OFFICE FOR APPOINTMENT PICC LINE NEEDS TO BE DISCONTINUED AFTER IV ANTIBIOTIC IS COMPLETED PLEASE HAVE REFERRAL FOR DERMATOLOGY FOR RECURRENT SKIN INFECTION TAKE OVER THE COUNTER STOOL SOFTENER /DRINK PLENTY OF FLUID TO PREVENT CONSTIPATION WHILE TAKING NARCOTIC PAIN MEDS DRESSING CHANGE BY HOME HEALTH : Dressing changes every other day with 1/4inch gauze /clean base with Normal saline and mary kay pad. till no or minimum drainage Current Hospital Diet Patient's current hospital diet: Diabetes Type 2 Diet Discharge Diet Recommended Diet: Diabetes Type 2 Diet Procedures Procedures Performed: INCISION AND DRAINAGE OF RT LABIAL ABSCESS Pending Studies Studies pending at discharge: no Laboratory Results Hemoglobin A1c Test 08/21/16 06:29 Range/Units Estimated Average Glucose 177 mg/dl Hemoglobin A1c 7.8 H 4.5-5.6 % Medical Emergencies . Who to Call and When: Medical Emergencies: If at any time you feel your situation is an emergency, please call 911 immediately. . Non-Emergent Contact Non-Emergency issues call your: Primary Care Provider . . "Provider Documentation" section prepared by Adriana Flores. VTE Core Measure Inpt VTE Proph given/why not?: Unfractionated heparin SQ [place] Drug Monitoring Program Search Results: no issues identified
[2016-08-25] MEDS ORDERED: DAPTOmycin IV 400 MG in SODIUM CHLORIDE 0.9% 50ML 50 ML IV SCH (22:00)
--- NOTE | 2016-08-25 22:01 | Progress Note ---
Internal Med Progress Note Date of Service: Aug 25, 2016. Provider Documentation: SUBJECTIVE: feels much better today minimum pain , ambulating /sitting without difficulty no fever or pain pain during dressing change /packing much tolerable with PO Vicodin CT of pelvis -resolution of abscess , no need for repeat i&D PICC Line ordered abx changed to Daptomycin plan to D/c home with IV Daptomycin to complete total 10 days of tx OBJECTIVE: Vital Signs-as noted below Exam: General-no sign of distress Eyes-non icteric sclera ENT-NAD Neck-no JVD Lungs-CTA Heart-regular S1/S2 Abdomen-soft, non tender Extremities-minimum erythema on rt thigh area , minimum drainage on rt labial area Neuro-no focal deficit Lab data as noted below. 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 This consistent with an abscess. There is surrounding skin thickening/fat stranding. This demonstrates a small sinus tract to the skin surface. clinically much improved, minimum pain , no fever or chills white count normal repeat CT pelvis : today 08/25/16 1. Findings are consistent with resolving labial cellulitis. This has significantly improved as compared to 08/22/2016. 2. The organized fluid collection seen on 08/22/2016 has almost completely resolved. 3. Reactive inguinal lymph nodes have decreased in size from previous. -evaluated by surgery -no need for repeat I&D -cont IV Abx to complete 10 days tx -home health visiting nurse for dressing change -out pt follow up with Surgery in 1-2 weeks -discussed abx option by ID team -abx is changed to IV Daptomycin for once daily administration -ordered for PICC line -Discharge home tomorrow after receiving IV Daptomycin in hospital # will need 3 more days of tx to complete PICC line should be discontinued after completion of IV Abx PO Vicodin PRN script given for pain control pt is encouraged for Dermatology follow up for recurrent skin infection HYPERTENSION BP stable Continue lisinopril DM TYPE 2 Hold metformin during hospitalization resumed on discharge insulin SSI Consulted pharmacy for glycemic control OBSTRUCTIVE LUNG DISEASE Not in exacerbation Continue Advair and PRN albuterol Follows with Dr. Flores HYPOTHYROIDISM Continue levothyroxine CODE STATUS Full code DVT PROPHYLAXIS Heparin SQ DISPOSITION Discharge home tomorrow Medicine follow up with Dr Gallardo referrals made to [facility] for home IV Antibiotic and [facility]. Vital Signs: Date Time Temp Pulse Resp B/P Pulse Ox O2 Delivery O2 Flow Rate FiO2 08/25/16 21:48 72 120/77 08/25/16 15:34 36.6 72 18 121/74 92 Room Air 08/25/16 15:30 Room Air 08/25/16 09:06 94 Room Air 08/25/16 08:00 Room Air 08/25/16 07:32 36.6 67 20 105/64 94 Room Air 08/24/16 23:17 Room Air 08/24/16 23:15 36.6 81 18 122/73 91 Room Air Lab Results: Results Past 24 Hours Test 08/25/16 07:45 08/25/16 08:25 08/25/16 11:15 08/25/16 17:08 Range/Units Bedside Glucose 133 165 127 70-90 mg/dl Vancomycin Level Trough 15.3 SEE COMMENT mcg/ml Test 08/25/16 20:52 Range/Units Bedside Glucose 122 70-90 mg/dl
[2016-08-25] MEDS ORDERED: DOCU-94 PO (22:11)
[2016-08-25 22:51] VITALS: BP 127/81; PULSE 66; TEMP 36.4; O2SAT 92
[2016-08-26] MEDS: HYDROCODONE/ACETAMOPHEN 5/325MG TAB PO PRN (04:45)
[2016-08-26] MEDS: LEVOTHYROXINE 125 MCG TAB PO SCH (05:40)
[2016-08-26] MEDS: HEPARIN SOD 5000 UNIT/0.5 ML CARP SQ SCH ×2 (05:40→12:55)
[2016-08-26 07:09] VITALS: BP 101/65; PULSE 70; TEMP 36.4; O2SAT 91
[2016-08-26 07:45] VITALS: O2SAT 91
[2016-08-26] MEDS: INSULIN ASPART 100 UNITS/ML 3 ML PEN SC SCH ×2 (09:30→12:54)
[2016-08-26] MEDS: FLUTICASONE PROPIONATE NA SPR 16 GM BTL NAE SCH (09:31)
[2016-08-26] MEDS: INSULIN GLARGINE SOLOSTAR 100 UNITS/ML 3 ML PEN SC SCH (09:31)
[2016-08-26] MEDS: MULTIVITAMIN TAB PO SCH (09:31)
[2016-08-26] MEDS: CYCLOBENZAPRINE HCL 10 MG TAB PO SCH ×2 (09:31→12:54)
[2016-08-26] MEDS: FEXOFENADINE HCL 180 MG TAB PO SCH (09:31)
[2016-08-26] MEDS: FLUTICASONE/SALMETEROL 250/50 (ADVAIR) 14 PUFF/1 INHALER INH SCH (09:32)
[2016-08-26] MEDS: OMEGA-3 (PURIFIED FISH OIL) 1 GM CAP PO SCH (09:32)
--- NOTE | 2016-08-26 09:42 | Infectious Disease Progress Nt ---
Progress Note Date of Service Aug 26, 2016. Subjective Pt evaluation today including: conversation w/ patient, physical exam, chart review, lab review, review of studies, review of inpatient medication list Patient is feeling well this morning. She is anticipating D/C today if abx are set up for at home. She did have a dose of Daptomycin last night and is having a midline placed this morning. She continues to have some mild pain in the right labia and inner thigh but this is much improved. All Other Systems: Reviewed and Negative Medications Current Inpatient Medications Medications (Trade) Dose Ordered Sig/[place] Route Start Time Stop Time Status Last Admin Dose Admin Heparin Sodium (Porcine) (Heparin Sq 5000 Unit/0.5ml) 5,000 unit Q8H SQ 08/21/16 06:00 09/20/16 05:59 08/26/16 05:40 5,000 UNIT Acetaminophen (Tylenol Tab) 650 mg Q4H PRN PO 08/20/16 22:15 09/19/16 22:14 08/23/16 23:37 650 MG Ondansetron HCl (Zofran Inj) 4 mg Q6H PRN IV 08/20/16 22:15 09/19/16 22:14 Glucose (Glucose 40% Gel) 15-30 GRAMS 15 GRAMS... UD PRN PO 08/20/16 22:15 09/19/16 22:14 Glucose (Glucose Chew Tab) 4-8 Tablets 4 Tabl... UD PRN PO 08/20/16 22:15 09/19/16 22:14 Dextrose (Dextrose 50% 50ML Syringe) 25-50ML OF 50% DW IV FOR... UD PRN IV 08/20/16 22:15 09/19/16 22:14 Glucagon (Glucagon Inj) 1 mg UD PRN SQ 08/20/16 22:15 09/19/16 22:14 Aspirin (Ecotrin Tab) 162 mg HS PO 08/21/16 21:00 09/20/16 20:59 08/25/16 21:51 162 MG Cyclobenzaprine HCl (Flexeril Tab) 10 mg TID PO 08/21/16 09:00 09/20/16 08:59 08/26/16 09:31 10 MG Fexofenadine HCl (Kaelyn Tab) 180 mg DAILY PO 08/21/16 09:00 09/20/16 08:59 08/26/16 09:31 180 MG Fish Oil ([place]-3 (Purified Fish Oil) Cap) 1 gm DAILY PO 08/21/16 09:00 09/20/16 08:59 08/26/16 09:32 1 GM Salmeterol Xinafoate/ Fluticasone (Advair Diskus 250/50 Inh) 1 puff BID INH 08/21/16 09:00 09/20/16 08:59 08/26/16 09:32 1 PUFF Fluticasone Propionate (Flonase Nasal [place]) 2 sprays BID JOSUE 08/21/16 09:00 09/20/16 08:59 08/26/16 09:31 2 SPRAYS Levothyroxine Sodium (Synthroid Tab) 125 mcg DAILYBB PO 08/21/16 06:00 09/20/16 06:59 08/26/16 05:40 125 MCG Lisinopril (Zestril Tab) 20 mg QPM PO 08/21/16 21:00 09/20/16 20:59 08/25/16 21:49 20 MG Multivitamins (Multivitamin Tab) 1 tab DAILY PO 08/21/16 09:00 09/20/16 08:59 08/26/16 09:31 1 TAB Albuterol (Ventolin Hfa Inhaler) 2 puffs Q4 PRN INH 08/20/16 22:30 09/19/16 22:29 Acetaminophen/ Hydrocodone Bitart ([place] 5/325 Tab) 1 tab Q4 PRN PO 08/21/16 22:00 09/04/16 21:59 08/24/16 20:52 1 TAB Acetaminophen/ Hydrocodone Bitart ([place] 5/325 Tab) 2 tab Q4 PRN PO 08/21/16 22:00 09/04/16 21:59 08/26/16 04:45 2 TAB Morphine Sulfate (MoRPHine SULFATE INJ) 2 mg Q4H PRN IV 08/21/16 22:00 09/04/16 21:59 08/24/16 23:10 2 MG Morphine Sulfate (MoRPHine SULFATE INJ) 4 mg Q4H PRN IV 08/21/16 22:00 09/04/16 21:59 08/23/16 06:33 4 MG Insulin Aspart (novoLOG ASPART) SLIDING SCALE If C... ACHS SC 08/22/16 12:00 09/21/16 11:59 08/26/16 09:30 6 UNITS Insulin Glargine (Lantus Solostar Pen) 10 unit BID SC 08/24/16 21:00 09/23/16 20:59 08/26/16 09:31 10 UNIT Ioversol 125 ml 125 ml UD PRN IV 08/25/16 07:15 08/29/16 07:14 Daptomycin/Sodium Chloride ([place] IV/Nss 50ml) 58 ml @ 100 mls/hr TODAY@1200 IV 08/26/16 12:00 08/26/16 12:35 Objective Vital Signs Date Time Temp Pulse Resp B/P Pulse Ox O2 Delivery O2 Flow Rate FiO2 08/26/16 07:45 91 Room Air 08/26/16 07:45 Room Air 08/26/16 07:09 36.4 70 17 101/65 91 Room Air 08/25/16 23:42 Room Air 08/25/16 22:51 36.4 66 15 127/81 92 Room Air 08/25/16 21:48 72 120/77 08/25/16 15:34 36.6 72 18 121/74 92 Room Air 08/25/16 15:30 Room Air Physical Exam General Appearance: no apparent distress, + obese Eyes: normal inspection, sclerae normal ENT: hearing grossly normal Neck: supple, trachea midline Respiratory/Chest: no respiratory distress, no accessory muscle use Cardiovascular: + pertinent finding (regular rate) Extremities: normal range of motion Neurologic/Psychiatric: alert, normal mood/affect Skin: warm/dry, no rash Laboratory Results Last 24 Hours Test 08/25/16 11:15 08/25/16 17:08 08/25/16 20:52 08/26/16 08:13 Bedside Glucose 165 mg/dl 127 mg/dl 122 mg/dl 134 mg/dl Assessment and Plan Patient with right labial abscess, labial cellulitis, MRSA, and recurrent boils/ pustules. She had a dose of IV Daptomycin last night. She likely will need at least 7 days of therapy. She is OK for D/C from ID perspective once home IV abx are in place. We will follow up as outpatient. Thanks PROVIDER ADDENDUM: Patient reviewed with Ms. Brian. Agree with above assessment.
[2016-08-26] MEDS ORDERED: DAPTOmycin IV 400 MG in SODIUM CHLORIDE 0.9% 50ML 50 ML IV SCH (12:00)
[2016-08-26 13:22] VITALS: BP 101/65; PULSE 70; TEMP 36.4; O2SAT 91
--- NOTE | 2016-08-26 13:35 | Progress Note ---
Subjective Date of Service: Aug 26, 2016. Subjective Pt evaluation today including: conversation w/ patient, physical exam, lab review, review of studies, review of inpatient medication list Saw/examined the patient in room 376 She is doing well, no problems/issues to note Problem List Medical Problems: (1) Abscess of right thigh Status: Acute (2) Sepsis Status: Acute Review of Systems Constitutional: No chills, No fever Abdomen: + problem reported (groin pain improved), No diarrhea, No nausea, No pain, No vomiting Heme: No abnormal bleeding/bruising Medications Current Inpatient Medications Medications (Trade) Dose Ordered Sig/[place] Route Start Time Stop Time Status Last Admin Dose Admin Heparin Sodium (Porcine) (Heparin Sq 5000 Unit/0.5ml) 5,000 unit Q8H SQ 08/21/16 06:00 09/20/16 05:59 08/26/16 12:55 5,000 UNIT Acetaminophen (Tylenol Tab) 650 mg Q4H PRN PO 08/20/16 22:15 09/19/16 22:14 08/23/16 23:37 650 MG Ondansetron HCl (Zofran Inj) 4 mg Q6H PRN IV 08/20/16 22:15 09/19/16 22:14 Glucose (Glucose 40% Gel) 15-30 GRAMS 15 GRAMS... UD PRN PO 08/20/16 22:15 09/19/16 22:14 Glucose (Glucose Chew Tab) 4-8 Tablets 4 Tabl... UD PRN PO 08/20/16 22:15 09/19/16 22:14 Dextrose (Dextrose 50% 50ML Syringe) 25-50ML OF 50% DW IV FOR... UD PRN IV 08/20/16 22:15 09/19/16 22:14 Glucagon (Glucagon Inj) 1 mg UD PRN SQ 08/20/16 22:15 09/19/16 22:14 Aspirin (Ecotrin Tab) 162 mg HS PO 08/21/16 21:00 09/20/16 20:59 08/25/16 21:51 162 MG Cyclobenzaprine HCl (Flexeril Tab) 10 mg TID PO 08/21/16 09:00 09/20/16 08:59 08/26/16 12:54 10 MG Fexofenadine HCl (Kaelyn Tab) 180 mg DAILY PO 08/21/16 09:00 09/20/16 08:59 08/26/16 09:31 180 MG Fish Oil ([place]-3 (Purified Fish Oil) Cap) 1 gm DAILY PO 08/21/16 09:00 09/20/16 08:59 08/26/16 09:32 1 GM Salmeterol Xinafoate/ Fluticasone (Advair Diskus 250/50 Inh) 1 puff BID INH 08/21/16 09:00 09/20/16 08:59 08/26/16 09:32 1 PUFF Fluticasone Propionate (Flonase Nasal [place]) 2 sprays BID JOSUE 08/21/16 09:00 09/20/16 08:59 08/26/16 09:31 2 SPRAYS Levothyroxine Sodium (Synthroid Tab) 125 mcg DAILYBB PO 08/21/16 06:00 09/20/16 06:59 08/26/16 05:40 125 MCG Lisinopril (Zestril Tab) 20 mg QPM PO 08/21/16 21:00 09/20/16 20:59 08/25/16 21:49 20 MG Multivitamins (Multivitamin Tab) 1 tab DAILY PO 08/21/16 09:00 09/20/16 08:59 08/26/16 09:31 1 TAB Albuterol (Ventolin Hfa Inhaler) 2 puffs Q4 PRN INH 08/20/16 22:30 09/19/16 22:29 Acetaminophen/ Hydrocodone Bitart ([place] 5/325 Tab) 1 tab Q4 PRN PO 08/21/16 22:00 09/04/16 21:59 08/24/16 20:52 1 TAB Acetaminophen/ Hydrocodone Bitart ([place] 5/325 Tab) 2 tab Q4 PRN PO 08/21/16 22:00 09/04/16 21:59 08/26/16 04:45 2 TAB Morphine Sulfate (MoRPHine SULFATE INJ) 2 mg Q4H PRN IV 08/21/16 22:00 09/04/16 21:59 08/24/16 23:10 2 MG Morphine Sulfate (MoRPHine SULFATE INJ) 4 mg Q4H PRN IV 08/21/16 22:00 09/04/16 21:59 08/23/16 06:33 4 MG Insulin Aspart (novoLOG ASPART) SLIDING SCALE If C... ACHS SC 08/22/16 12:00 09/21/16 11:59 08/26/16 12:54 6 UNITS Insulin Glargine (Lantus Solostar Pen) 10 unit BID SC 08/24/16 21:00 09/23/16 20:59 08/26/16 09:31 10 UNIT Ioversol (Optiray 320) 125 ml UD PRN IV 08/25/16 07:15 08/29/16 07:14 Heparin Sodium (Porcine) (Heparin 10 Unit/ ml 5 ml Flush) 5 ml PRN PRN FLUSH 08/26/16 12:45 09/25/16 12:44 Objective Vital Signs Date Time Temp Pulse Resp B/P Pulse Ox O2 Delivery O2 Flow Rate FiO2 08/26/16 07:45 91 Room Air 08/26/16 07:45 Room Air 08/26/16 07:09 36.4 70 17 101/65 91 Room Air 08/25/16 23:42 Room Air 08/25/16 22:51 36.4 66 15 127/81 92 Room Air 08/25/16 21:48 72 120/77 08/25/16 15:34 36.6 72 18 121/74 92 Room Air 08/25/16 15:30 Room Air Physical Exam General Appearance: no apparent distress Respiratory/Chest: lungs clear, normal breath sounds, no respiratory distress, no accessory muscle use Cardiovascular: regular rate, rhythm, no edema, no murmur Abdomen: normal bowel sounds, non tender, soft, + pertinent finding (mild erythema at right labia) Extremities: normal inspection, no pedal edema Neurologic/Psychiatric: edge inker heels II-XII nml as tested, no motor/sensory deficits, alert, normal mood/affect, oriented x 3 Skin: normal color Lymphatic: no adenopathy Laboratory Results Last 24 Hours Test 08/25/16 17:08 08/25/16 20:52 08/26/16 08:13 08/26/16 11:59 Bedside Glucose 127 mg/dl 122 mg/dl 134 mg/dl 148 mg/dl Assessment and Plan This is a 60 year old female with PMH of HTN, HLD, DM2, hypothyroidism presents with cellulitis and abscess of right pubis Sepsis secondary to Abscess/Cellulitis of Right Pubis/Labia CT was performed showing abscess s/p incision and drainage bacterial cultures grew MRSA sensitive to daptomycin; plan is for d/c home with dapto mid-line placed will need 7 additional days of antibiotic therapy PO Vicodin given for pain PRN home health needed HTN blood pressure stable continue home medications DM2 Hold metformin during hospitalization resumed on discharge insulin SSI Consulted pharmacy for glycemic control Asthma/Obstructive Lung Disease Not in exacerbation Continue Advair and PRN albuterol Follows with Dr. Flores Hypothyroidism Continue levothyroxine DVT ppx subq heparin FULL CODE
[2016-08-26] MEDS ORDERED: DAPTOMYCIN IV (13:36)
--- NOTE | 2016-08-26 13:43 | Discharge Summary ---
Discharge Summary Date of Service Aug 26, 2016. Discharge Summary Admission Date: Aug 20, 2016 at 22:31 Discharge Date: Aug 26, 2016 Discharge Disposition: Home with services Principal Diagnosis: Abscess/Cellulitis of Right Labia s/p incision and drainage Medication Reconciliation New Medications: Docusate Sodium (Colace) 100 Mg Cap 1 CAP PO BID for 15 Days, #30 CAP while taking vicodin to prevent constipation over the counter [Daptomycin] () 400 MG IV DAILY for 7 Days, #7 EA Hydrocodone/Acetaminophen 5MG/325MG ([place] 5MG/325MG) Tab 1-2 TAB PO Q4 PRN for Pain, #60 TAB PRN PAIN Continued Medications: Albuterol Sulfate (Proair Respiclick) 108 Mcg/Act Aer 2 PUFFS INH Q4 PRN for SOB/Wheezing Aspirin (Aspirin Ec) 81 Mg Tab 162 MG PO HS Cyclobenzaprine Hcl (Flexeril) 10 Mg Tab 10 MG PO TID Fexofenadine Hcl (Kaelyn Allergy) 180 Mg Tab 1 TAB PO DAILY for 30 Days, #30 TAB 2 Refills Fish Oil ([place]-3) 1 Ea Cap 1 CAP PO DAILY, CAP Fluticasone Prop/Salmeterol (Advair Diskus 250/50 60 Dose) 1 Ea Aerp 1 PUFF INH BID, INHALER Fluticasone Propionate (Nasal) (Flonase Allergy Relief) 50 Mcg/Act Spr 2 SPRAYS JOSUE BID Insulin Glargine (Lantus) 100 Unit/Ml Inj 50 UNITS SC QPM, VIAL Insulin Human Regular (Novolin R) 1 Unit/1 Ml Inj SQ TIDM for SLIDING SCALE Levothyroxine Sodium (Synthroid) 125 Mcg Tab 125 MCG PO DAILY, TAB Lisinopril (Zestril) 20 Mg Tab 20 MG PO QPM, TAB Metformin Hcl (Glucophage) 1,000 Mg Tab 1000 MG PO BID, TAB Multiple Vitamin (Multivitamin) 1 Tab Tab 1 TAB PO DAILY, TAB Admission Information HPI (per Admitting provider): This is a 60 y/o female with PMH of DM type 2, obesity, HTN, HL, hypothyroidism , and other problems listed below who presents to the ED for right labia and right upper thigh tenderness and swelling. Patient initially developed abscesses of right and left upper thigh in June 2016 and was treated with 2 courses of Bactrim as outpatient. Those lesions resolved then approx 1 week ago developed 2 areas of swelling and tenderness in right upper anterior thigh and right labia. She states there was purulent drainage from the right thigh lesion. Since yesterday has fevers with Tmax of 100.6 in [facility] office today. She was seen in [facility] for annual exam and sent to ER for abscess. In ER the right thigh lesion was drained and cultured. Pt reports discomfort if she sits on the lesions but is feeling comfortable now. Her blood sugar was low in 60s last night at home. She denies dizziness, chills, URI symptoms, cough, SOB, chest pain, abdominal pain, N/V/D, dysuria, frequency, vaginal discharge. No recent hospitalization. Physical Exam (per Admitting): General Appearance: no apparent distress, + obese, + pertinent finding ( pleasant alert 60 y/o female) Head: normocephalic, atraumatic Eyes: normal inspection, PERRL, EOMI ENT: hearing grossly normal, pharynx normal Neck: supple, trachea midline Respiratory/Chest: lungs clear, normal breath sounds, no respiratory distress Cardiovascular: regular rate, rhythm, no murmur Abdomen/GI: normal bowel sounds, non tender, soft Extremities/Musculoskelatal: no calf tenderness, no pedal edema Neurologic/Psych: alert, normal mood/affect, oriented x 3 Skin: + pertinent finding (right labia with erythema, tenderness, induration. no fluctuance. right upper thigh with small area induration s/p incision/ drainage in ER with mild surrounding erythema. no active drainage.) Hospital Course This is a 60 year old female with PMH of HTN, HLD, DM2, hypothyroidism presents with cellulitis and abscess of right pubis Sepsis secondary to Abscess/Cellulitis of Right Pubis/Labia CT was performed showing abscess s/p incision and drainage bacterial cultures grew MRSA sensitive to daptomycin; plan is for d/c home with dapto mid-line placed will need 7 additional days of antibiotic therapy PO Vicodin given for pain PRN home health needed HTN blood pressure stable continue home medications DM2 Hold metformin during hospitalization resumed on discharge insulin SSI Consulted pharmacy for glycemic control Asthma/Obstructive Lung Disease Not in exacerbation Continue Advair and PRN albuterol Follows with Dr. Flores Hypothyroidism Continue levothyroxine DVT ppx subq heparin FULL CODE Total time spent on discharge = 35 minutes This includes examination of the patient, discharge planning, medication reconciliation, and communication with other providers. Discharge Instructions HOSPITAL FOLLOW UP WITH DR FORDE ON 09/01/2016 @ 11:10 AM at Internal Medicine [facility] FOLLOW UP WITH SURGERY DR ALVAREZ IN 1-2 WEEKS, PLEASE CALL OFFICE FOR APPOINTMENT PICC LINE NEEDS TO BE DISCONTINUED AFTER IV ANTIBIOTIC IS COMPLETED PLEASE HAVE REFERRAL FOR DERMATOLOGY FOR RECURRENT SKIN INFECTION TAKE OVER THE COUNTER STOOL SOFTENER /DRINK PLENTY OF FLUID TO PREVENT CONSTIPATION WHILE TAKING NARCOTIC PAIN MEDS DRESSING CHANGE BY HOME HEALTH : Dressing changes every other day with 1/4inch gauze /clean base with Normal saline and mary kay pad. till no or minimum drainage
== END 2016-08-26 16:07 | disposition home health service (06) | DRG 854 ==
LOC: ENRESERVTM → ENRESERVDT → C.EDB 18:07 → C.MSN 22:31 → EDBEDREQSVC 22:32
PROVIDERS: ADMIT Internal Medicine; ATTEND Family Medicine
PROC: 0U9MXZZ Drainage of Vulva, External Approach (ICD-10-PCS; principal; 2016-08-21)
DX: A41.9 Sepsis, unspecified organism (principal); L03.115 Cellulitis of right lower limb; N76.4 Abscess of vulva; I10 Essential (primary) hypertension; E78.5 Hyperlipidemia, unspecified; E03.9 Hypothyroidism, unspecified; E66.9 Obesity, unspecified; Z68.37 Body mass index [BMI] 37.0-37.9, adult; J44.9 Chronic obstructive pulmonary disease, unspecified; Z82.49 Family history of ischemic heart disease and other diseases of the circulatory system; Z83.3 Family history of diabetes mellitus; Z83.6 Family history of other diseases of the respiratory system; Z79.82 Long term (current) use of aspirin; Z79.899 Other long term (current) drug therapy; Z79.4 Long term (current) use of insulin; Z88.0 Allergy status to penicillin; E11.649 Type 2 diabetes mellitus with hypoglycemia without coma; Z87.891 Personal history of nicotine dependence; B95.62 Methicillin resistant Staphylococcus aureus infection as the cause of diseases classified elsewhere; N76.2 Acute vulvitis

== ENCOUNTER → 2016-09-01 | Outpatient (CLI) | payer BC ==
[~2016-09-01] MED LIST changes: +ADVIN25/60 INH; +ALBU18002 INH; +ASPI81TA28 PO; +CYCL10TA6 PO; +DAPTOMYCIN IV; +DOCU-94 PO; +FEXO1TAB49 PO; +FLUT0.15 NAE; +HYDR-5688 PO; +INSDGI SC; +LEVO125T72 PO; +LISI-725 PO; +METF-384 PO; +MULTTAB58 PO; +NVLRB SQ; +OMEG10007 PO; -SODIUM CHLORIDE 0.9% 1000ML 1,000 ML IV SCH
[2016-09-01 12:14] LABS: BASO % 1.1 %; BASO ABS # 0.08 K/uL (0-0.2); COMPLETE YES; EOS % 1.9 %; HEMATOCRIT 42.8 % (37-47); IG% 0.1 %; LYMPH % 44.1 %; MEAN CELL VOLUME 97.1 fL (80-100); MEAN CORPUSCULAR HEMOGLOBIN 32.9 pg (25-34); MEAN CORPUSCULAR HGB CONC 33.9 g/dl (32-36); MEAN PLATELET VOLUME 10.8 fL (7.4-10.4); MONO % 7.4 %; NEUT % 45.4 %; PLATELET COUNT 225 K/uL (130-400); RED BLOOD COUNT 4.41 M/uL (4.2-5.4); WHITE BLOOD COUNT 7.25 K/uL (4.8-10.8)
[2016-09-01 12:29] LABS: ALT/SGPT 54 U/L (12-78); BLOOD UREA NITROGEN 17 mg/dl (7-18); BUN/CREATININE RATIO 20.5 (10-20); CALCIUM 9.4 mg/dl (8.5-10.1); CARBON DIOXIDE 26 mmol/L (21-32); CHLORIDE 103 mmol/L (98-107); CHOLESTEROL 207 mg/dl (0-200); CREATININE 0.81 mg/dl (0.60-1.20); GLUCOSE 205 mg/dl (70-99); POTASSIUM 3.9 mmol/L (3.5-5.1); SODIUM 138 mmol/L (136-145); TRIGLYCERIDES 230 mg/dl (0-150); VERY LOW DENSITY LIPOPROT CALC 46 mg/dl
[2016-09-01 12:38] LABS: ALB/GLOB RATIO 0.7 (0.9-2); ALKALINE PHOSPHATASE 64 U/L (45-117); AST/SGOT 32 U/L (15-37); CHOLESTEROL/HDL RATIO 2.8; HDL CHOLESTEROL 73 mg/dl; LDL CHOLESTEROL CALCULATED 88 mg/dl; THYROID STIMULATING HORMONE 0.539 uIu/ml (0.300-4.500)
[2016-09-02 06:30] LABS: ESTIMATED AVERAGE GLUCOSE 180 mg/dl; HA1C FLAG Normal (Normal)
== END | disposition home or self-care (01) ==
LOC: C.LAB1850 10:55
PROVIDERS: ATTEND Nurse Practitioner Family
DX: E11.65 Type 2 diabetes mellitus with hyperglycemia (principal); N76.4 Abscess of vulva

== ENCOUNTER → 2016-11-27 | Outpatient (CLI) | payer BC ==
[~2016-11-27] MED LIST changes: -DOCU-94 PO
[2016-11-27 12:40] LABS: ESTIMATED AVERAGE GLUCOSE 174 mg/dl; HA1C FLAG Normal (Normal)
== END | disposition home or self-care (01) ==
LOC: C.LAB1850 10:05
PROVIDERS: ATTEND Nurse Practitioner Family
DX: E03.9 Hypothyroidism, unspecified (principal); E11.8 Type 2 diabetes mellitus with unspecified complications

== ENCOUNTER → 2017-03-05 | Outpatient (CLI) | payer BC ==
[2017-03-05 12:26] LABS: URINE APPEARANCE CLEAR (CLEAR); URINE BILIRUBIN NEG (NEG); URINE COLOR YELLOW; URINE EPITHELIAL CELL AUTO 0-5 /lpf (0-5); URINE NITRITE NEG (NEG); UROBILINOGEN NEG (NEG); ZZUR CULT IF INDIC CLEAN CATCH NO
[2017-03-05 12:27] LABS: MANUAL MICROSCOPIC REQUIRED? NO; REVIEW REQ? NO
[2017-03-05 13:43] LABS: CHOLESTEROL/HDL RATIO 2.6
== END | disposition home or self-care (01) ==
LOC: C.LABPBG 07:41
PROVIDERS: ATTEND Nurse Practitioner Family
DX: R30.0 Dysuria (principal); E78.5 Hyperlipidemia, unspecified

== ENCOUNTER → 2017-07-20 | Outpatient (CLI) | payer BC ==
[2017-07-20 12:56] LABS: HEMOGLOBIN A1C 7.9 % (4.5-5.6)
== END ==
LOC: C.LABPBG 07:15
PROVIDERS: ATTEND Nurse Practitioner Family
DX: E11.8 Type 2 diabetes mellitus with unspecified complications (principal)

== ENCOUNTER → 2017-09-25 | Outpatient (CLI) | payer BC ==
[2017-09-25 13:59] LABS: HEMOGLOBIN A1C 6.9 % (4.5-5.6)
[2017-09-25 14:52] LABS: BLOOD UREA NITROGEN 15 mg/dl (7-18); CALCIUM 9.3 mg/dl (8.5-10.1); CARBON DIOXIDE 25 mmol/L (21-32); CHOLESTEROL 172 mg/dl (0-200); CREATININE 0.81 mg/dl (0.60-1.20); GLUCOSE 141 mg/dl (70-99); POTASSIUM 3.8 mmol/L (3.5-5.1); SODIUM 137 mmol/L (136-145)
[2017-09-25 15:03] LABS: LDL CHOLESTEROL CALCULATED 75 mg/dl
== END | disposition home or self-care (01) ==
LOC: C.LABPBG 07:16
PROVIDERS: ATTEND Family Medicine
DX: E03.9 Hypothyroidism, unspecified (principal); I10 Essential (primary) hypertension; E11.8 Type 2 diabetes mellitus with unspecified complications; E78.5 Hyperlipidemia, unspecified; J45.909 Unspecified asthma, uncomplicated